=== PATIENT | male | born 1965 | race Caucasian/White ===

== ENCOUNTER 2021-07-29 18:58 | Inpatient (IN) ==
[2021-07-29] MEDS ORDERED: dexAMETHasone**PF** 10 MG/ML VIAL IV ONE (19:45)
--- NOTE | 2021-07-29 19:49 | Emergency Department Note ---
History of Present Illness General Chief complaint: Shortness of Breath/Dyspnea Stated complaint: LOW BLOOD OXYGEN, DR TAYLOR Time Seen by Provider: 07/29/21 19:37 Source: patient History of Present Illness Provider complaint: Short of breath Onset (ago): week(s) Location: chest Pain Consistency: + constant Quality: + other (Short of breath) Relieved By: + other (Oxygen) Associated symptoms: + cough, + fever/chills, + malaise, + shortness of breath and + weakness; no chest pain or no nausea/vomiting This is a 56-year-old male recently diagnosed with COVID-19 presenting with persistent flulike symptoms including shortness of breath for the past 9 days. The patient states that he has fever, cough, loss of taste and smell, severe diarrhea and shortness of breath. The shortness of breath is better with oxygen given here. He was seen here last night and discharged home as his O2 saturations were in the low 90s. He is not vaccinated. He states he got COVID- 19 from his who is also not vaccinated. He denies any chest pain, leg swelling, abdominal pain, urinary symptoms or vomiting. He has had diffuse myalgias. He states whenever he tries to eat or drink something he has diarrhea. Home Medications Medication Instructions Recorded Confirmed Type acetaminophen 500 mg tablet 1,000 mg PO DIRECTED PRN 07/28/21 07/29/21 Histo ry (Tylenol Extra Strength) albuterol sulfate 90 mcg/actuation 1 - 2 inh INHALATION DIRECTED 07/28/21 07/29/21 History aerosol inhaler PRN cyclosporine 0.05 % eye drops in a 1 drp OPB BID 07/28/21 07/29/21 History dropperette (Restasis) diphenhydramine HCl 25 mg capsule 25 - 50 mg PO DIRECTED PRN 07/28/21 07/29/21 History (Benadryl) fluticasone propionate 50 2 spray INTRANASAL DAILY PRN 07/28/21 07/29/21 History mcg/actuation nasal spray,suspension ibuprofen 200 mg tablet (Advil) 200 - 400 mg PO DIRECTED PRN 07/28/21 07/29/21 History guaifenesin 600 mg tablet, 600 mg PO BID PRN 07/29/21 07/29/21 History extended release 12 hr (Mucinex) Allergies Allergy/AdvReac Type Severity Reaction Status Date / Time No Known Allergies Allergy Verified 07/29/21 19:52 Past Med/Surg History Medical History Asthma Social History Smoking Status: Never smoker Feels Safe at Home: Yes Review of Systems See HPI for pertinent positives & negatives. and A total of 10 systems reviewed and were otherwise negative Physical Exam Vital Signs Vital Signs - 24 hr 07/29/21 19:05 07/29/21 19:59 Temperature 36.7 C Temperature Source Temporal Artery Scan Pulse Rate 97 H 91 H Pulse Rate [Right Finger] 91 H Pulse Rhythm [Right Finger] Regular Respiratory Rate 20 17 Respiratory Effort / Characteristics Non-Labored Spontaneous Respiratory Depth Normal Normal Blood Pressure 120/81 Blood Pressure [Right Arm] 109/80 Blood Pressure Mean 94 Blood Pressure Mean [Right Arm] 89 Blood Pressure Position [Right Arm] Lying Pulse Oximetry 88 L 92 Oxygen Delivery Method Room Air Nasal Cannula Oxygen Flow Rate 2 Sepsis Recent Fever Within 48 Hours No Sepsis New/Unexplained Change in Mental Status No Sepsis Action Taken by Nursing No Action Required Constitutional: Vital signs reviewed. Hypoxemic. Eyes: Pupils are equal round reactive to light. Conjunctiva are noninjected. ENT: Pharynx is clear without erythema or exudate. Mucous membranes are moist. Neck supple without meningeal signs. Respiratory: Clear to auscultation bilaterally. Breath sounds are equal bilaterally. Cardiovascular: Regular rate and rhythm. No rubs or gallops. GI: Soft, nondistended and nontender. Bowel sounds are present. Musculoskeletal: No peripheral edema. No lower extremity tenderness. Integumentary: No cyanosis. or jaundice. Neurological: The patient is awake and alert. No focal deficits. Psychiatric: Normal affect. Not anxious appearing. Course Administered Medications Discontinued Medications Dexamethasone Sodium Phosphate (DexamethasonePf 10 Mg/Ml Vial) 6 mg IV NOW ONE Stop: 07/29/21 19:46 Last Admin: 07/29/21 20:12 Dose: 6 mg Documented by: [id number] Medical Decision Making Differential Diagnosis COVID-19, multifocal pneumonia, anemia, asthma exacerbation, metabolic derangement Medical Records Attestation: I reviewed the patient's medical records. I did perform a limited focused review of portions of the patient's old chart on the electronic medical record. The patient was here last night due to symptoms due to COVID-19. He was discharged home. Home Medications Current Medication List: was personally reviewed by me Laboratory Data Attestation: I reviewed the patient's lab results. Result diagrams: 07/29/21 20:05 07/29/21 20:05 Lab Results 07/29/21 07/29/21 07/29/21 Range/Units 20:05 20:05 20:05 WBC 4.83 (4.8-10.8) K/uL RBC 5.04 (4.7-6.1) M/uL Hgb 15.4 (14.0-18.0) g/dL Hct 46.3 (42-52) % MCV 91.9 (80-100) fL MCH 30.6 (25-34) pg MCHC 33.3 (32-36) g/dL RDW Std Deviation 43.3 (36.4-46.3) fL RDW Coeff of Pamela 12.8 (11.5-14.5) % Plt Count 144 (130-400) K/uL MPV 11.2 H (7.4-10.4) fL Immature Gran % (Auto) 0.4 % Neut % (Auto) 80.3 % Lymph % (Auto) 13.5 % [place]uming % (Auto) 5.6 % Eos % (Auto) 0.0 % Baso % (Auto) 0.2 % Neut # (Auto) 3.88 (1.4-6.5) K/uL Lymph # (Auto) 0.65 L (1.2-3.4) K/uL [place] # (Auto) 0.27 (0.11-0.59) K/uL Eos # (Auto) 0.00 (0-0.5) K/uL Baso # (Auto) 0.01 (0-0.2) K/uL Immature Gran # (Auto) 0.02 (0.00-0.02) K/uL APTT 37.6 H (21.0-31.0) Seconds PTT Ratio 1.4 Sodium 134 L (136-145) mmol/L Potassium 4.2 (3.5-5.1) mmol/L Chloride 102 (98-107) mmol/L Carbon Dioxide 26 (21-32) mmol/L Anion Gap 6.0 (3-11) BUN 11 (7-18) mg/dl Creatinine 0.89 (0.6-1.4) mg/dl Est Cr Clr Drug Dosing 97.8 ml/min Est GFR ( Amer) 112.3 ml/min Est GFR (Non-Af Amer) 96.9 ml/min BUN/Creatinine Ratio 12.5 (10-20) Glucose 119 H (70-99) mg/dl Calcium 9.0 (8.5-10.1) mg/dl Magnesium (1.8-2.4) mg/dl Total Bilirubin 0.4 (0.2-1) mg/dl AST 104 H (15-37) U/L ALT 87 H (12-78) Alkaline Phosphatase 145 H (45-117) U/L Troponin I < 0.015 (0-0.045) ng/ml C-Reactive Protein 9.29 H (0-0.29) mg/dl Total Protein 7.5 (6.4-8.2) gm/dl Albumin 3.0 L (3.4-5.0) gm/dl Globulin 4.5 H (2.5-4.0) gm/dl Albumin/Globulin Ratio 0.7 L (0.9-2) 07/29/ Range/Units 20:05 WBC (4.8-10.8) K/uL RBC (4.7-6.1) M/uL Hgb (14.0-18.0) g/dL Hct (42-52) % MCV (80-100) fL MCH (25-34) pg MCHC (32-36) g/dL RDW Std Deviation (36.4-46.3) fL RDW Coeff of Pamela (11.5-14.5) % Plt Count (130-400) K/uL MPV (7.4-10.4) fL Immature Gran % (Auto) % Neut % (Auto) % Lymph % (Auto) % [place] % (Auto) % Eos % (Auto) % Baso % (Auto) % Neut # (Auto) (1.4-6.5) K/uL Lymph # (Auto) (1.2-3.4) K/uL [place] # (Auto) (0.11-0.59) K/uL Eos # (Auto) (0-0.5) K/uL Baso # (Auto) (0-0.2) K/uL Immature Gran # (Auto) (0.00-0.02) K/uL APTT (21.0-31.0) Seconds PTT Ratio Sodium (136-145) mmol/L Potassium (3.5-5.1) mmol/L Chloride (98-107) mmol/L Carbon Dioxide (21-32) mmol/L Anion Gap (3-11) BUN (7-18) mg/dl Creatinine (0.6-1.4) mg/dl Est Cr Clr Drug Dosing ml/min Est GFR ( Amer) ml/min Est GFR (Non-Af Amer) ml/min BUN/Creatinine Ratio (10-20) Glucose (70-99) mg/dl Calcium (8.5-10.1) mg/dl Magnesium 2.0 (1.8-2.4) mg/dl Total Bilirubin (0.2-1) mg/dl AST (15-37) U/L ALT (12-78) Alkaline Phosphatase (45-117) U/L Troponin I (0-0.045) ng/ml C-Reactive Protein (0-0.29) mg/dl Total Protein (6.4-8.2) gm/dl Albumin (3.4-5.0) gm/dl Globulin (2.5-4.0) gm/dl Albumin/Globulin Ratio (0.9-2) Imaging Data Radiologist's Impression: Chest X-Ray 07/29/21 19:44 XR chest 1V portable CLINICAL HISTORY: Dyspnea. Covid positive COMPARISON STUDY: 07/28/2021 TECHNIQUE: 1 view of the chest FINDINGS: Single frontal view of the chest demonstrates the cardiomediastinal silhouette to be within normal limits. Compared to the previous examination, increased interstitial and alveolar opacities are present bilaterally. The findings are most characteristic of a viral type pneumonitis. Covid 19 pneumonia should be excluded. There is no evidence for pleural effusion. There is no evidence for vascular congestion. There is no acute osseous pathology. IMPRESSION: Compared to the previous examination, increased interstitial and alveolar opacities are now seen bilaterally, right greater than left characteristic of a viral type pneumonitis and probable Covid 19 pneumonia. ACT 112: Negative or not required by law. Electronically signed by: Kristian Tijerina M.D. 07/29/2021 8:05 PM MDM Narrative I did evaluate the patient as noted above. He is an unvaccinated Covid 19 patient presenting with hypoxemia. His O2 saturation is 88% on room air. He was placed on 2 L nasal cannula and is O2 saturation went up to 94%. IV access was established. I did place an order for continuous cardiac monitoring. The monitor showed normal sinus rhythm at a rate of 90 bpm. I did order and personally review the patient's 12-lead EKG as described above. I did order and personally reviewed the images of the patient's chest x-ray as described above. He has a multifocal pneumonia consistent with COVID-19. I did order and review the patient's blood work as noted in the electronic medical record. CBC demonstrates no evidence of leukocytosis or anemia. Electrolytes demonstrate a sodium of 134 but are otherwise unremarkable. LFTs are elevated with an AST of 104 and ALT of 87. Troponin is negative. C-reactive protein is 9.2. I did discuss case with the hospitalist and caser up. Impression & Plan Hypoxemia, Pneumonia due to 2019 novel coronavirus, Multifocal pneumonia, Abnormal LFTs Discharge Plan Visit Data Chief Complaint: Shortness of Breath/Dyspnea Stated Complaint: LOW BLOOD OXYGEN, RFR'D ED Provider: Andres Hassan Discharge Problem: Hypoxemia, Pneumonia due to 2019 novel coronavirus, Multifocal pneumonia, Abnormal LFTs Patient Disposition: Being Evaluated by Hospitalist Forms Stand Alone Forms: My [facility] Prescriptions Prescriptions: No Action acetaminophen [Tylenol Extra Strength] 500 mg Tablet 1,000 mg PO DIRECTED PRN (Reason: FEVER/PAIN) RF: 0 diphenhydramine HCl [Benadryl] 25 mg Capsule 25 - 50 mg PO DIRECTED PRN (Reason: Congestion) RF: 0 ibuprofen [Advil] 200 mg Tablet 200 - 400 mg PO DIRECTED PRN (Reason: FEVER/PAIN) RF: 0 albuterol sulfate 90 mcg/actuation Hfa Aerosol Inhaler 1 - 2 inh INHALATION DIRECTED PRN (Reason: Shortness Of Breath) RF: 0 fluticasone propionate 50 mcg/actuation spray,suspension 2 spray INTRANASAL DAILY PRN (Reason: Congestion) RF: 0 Restasis 0.05 % dropperette 1 drp OPB BID RF: 0 guaifenesin [Mucinex] 600 mg Tablet Extended Release 12hr 600 mg PO BID PRN (Reason: Congestion) RF: 0 Referrals Referrals: Scout Figueroa MD [Primary Care Provider] -
--- NOTE | 2021-07-29 20:06 | XRay Report ---
XR chest 1V portable CLINICAL HISTORY: Dyspnea. Covid positive COMPARISON STUDY: 07/28/2021 TECHNIQUE: 1 view of the chest FINDINGS: Single frontal view of the chest demonstrates the cardiomediastinal silhouette to be within normal li mits. Compared to the previous examination, increased interstitial and alveolar opacities are present bilaterally. The findings are most characteristic of a viral type pneumonitis. Covid 19 pneumonia sh ould be excluded. There is no evidence for pleural effusion. There is no evidence for vascular conges tion. There is no acute osseous pathology. IMPRESSION: Compared to the previous examination, increased interstitial and alveolar opacities are n ow seen bilaterally, right greater than left characteristic of a viral type pneumonitis and probable Covid 19 pneumonia. ACT 112: Negative or not required by law. Electronically signed by: Kristian Tijerina M.D. 07/29/2021 8:05 PM
[2021-07-29 20:40] LABS: Hematocrit (blood only) 46.3 % (42-52); Hemoglobin 15.4 g/dL (14.0-18.0); Mean Corpuscular Hemoglobin 30.6 pg (25-34); Mean Corpuscular Hgb Conc 33.3 g/dL (32-36); Mean Corpuscular Volume 91.9 fL (80-100); Mean Platelet Volume 11.2 fL (7.4-10.4); Platelet Count 144 K/uL (130-400); RDW Coefficient of Variation 12.8 % (11.5-14.5); RDW Standard Deviation 43.3 fL (36.4-46.3); Red Blood Count 5.04 M/uL (4.7-6.1); White Blood Count 4.83 K/uL (4.8-10.8)
[2021-07-29 20:57] LABS: Alanine Aminotransferase 87 (12-78); Aspartate Aminotransferase 104 U/L (15-37); BUN Creatinine Ratio 12.5 (10-20); Blood Urea Nitrogen 11 mg/dl (7-18); C Reactive Protein 9.29 mg/dl (0-0.29); Carbon Dioxide 26 mmol/L (21-32); Chloride 102 mmol/L (98-107); Creatinine Clr Calc Pharmacy 97.8 ml/min; Est GFR (African American) 112.3 ml/min; Est GFR (Non-African American) 96.9 ml/min; Glucose 119 mg/dl (70-99); Potassium 4.2 mmol/L (3.5-5.1); Sodium 134 mmol/L (136-145)
[2021-07-29 21:02] LABS: Albumin Globulin Ratio 0.7 (0.9-2); Alkaline Phosphatase 145 U/L (45-117); Bilirubin,Total 0.4 mg/dl (0.2-1); Globulin 4.5 gm/dl (2.5-4.0); Total Protein 7.5 gm/dl (6.4-8.2); Troponin I < 0.015 ng/ml (0-0.045)
[2021-07-29 21:06] LABS: Basophils # (auto) 0.01 K/uL (0-0.2); Basophils % (auto) 0.2 %; Immature Granulocytes # (auto) 0.02 K/uL (0.00-0.02); Immature Granulocytes % (auto) 0.4 %; Lymphocytes # (auto) 0.65 K/uL (1.2-3.4); Lymphocytes % (auto) 13.5 %; Monocytes # (auto) 0.27 K/uL (0.11-0.59); Monocytes % (auto) 5.6 %; Neutrophils # (auto) 3.88 K/uL (1.4-6.5); Neutrophils % (auto) 80.3 %; Partial Thromboplastin Ratio 1.4; Partial Thromboplastin Time 37.6 Seconds (21.0-31.0)
--- NOTE | 2021-07-29 21:14 | History & Physical Report ---
Date of Service July 29, 2021 Assessment & Plan (1) Acute hypoxemic respiratory failure: Plan: Secondary to severe COVID-19 pneumonia Superimposed bacterial infection No overt sepsis for now bronchial asthma, well controlled prior to illness as per patient, patient without wheezing symptoms at present. Asymptomatic transaminitis, possible fatty liver Hyperglycemia rule out DM mood disorder, stable Medical telemetry Supplemental O2 Azithromycin course for superimposed local infection Decadron and Remdesivir for severe COVID-19 pneumonia. (Patient was counseled regarding potential adverse effects from Remdesivir therapy.) Give initial dose of Remdesivir for now. Recheck LFTs before subsequent doses administered. Pulmonary consult if without improvement. Check hemoglobin A1c DVT prophylaxis per Lovenox subcu Full code Text document was generated using [employer] voice recognition software. It may contain grammatical or spelling errors. Kindly contact undersigned for clarification of any documentation item in question. History of Present Illness Chief Complaint: Shortness of breath, Covid Primary Care Provider: Scout Figueroa MD History obtained from patient and records. Medical history significant for bronchial asthma, hyperlipidemia, mood disorder. Patient with flulike symptoms, achiness, diarrhea symptoms without abdominal pain, poor appetite last week. Sick COVID-19 contacts at home. Patient has not received COVID-19 examination. First outpatient COVID-19 test last week was negative. 2 days later, patient insisted on being retested because of persistent symptoms. Second COVID-19 test was positive. Patient later developed cough symptoms productive of yellow sputum without chest pain. Some shortness of breath. Patient seen at the ER yesterday. Chest x-ray showed bilateral airspace opacities more pronounced on the right suggestive of pneumonia. Patient discharged home and advised self-care. Patient returned to ER with worsening symptoms. O2 sats upon arrival at the ER tonight 80s on room air. Decadron administered at the ER. Medical History as above Surgical History : Dental surgery Family History : Kidney cancer, DM, heart disease, stroke, mastocytosis Personal/Social history : Non-smoker, occasional EtOH intake, [employer] Allergies Allergy/AdvReac Type Severity Reaction Status Date / Time No Known Allergies Allergy Verified 07/29/21 19:52 Home Medications Medication Instructions Recorded Confirmed Type acetaminophen 500 mg tablet 1,000 mg PO DIRECTED PRN 07/28/21 07/29/21 History (Tylenol Extra Strength) albuterol sulfate 90 mcg/actuation 1 - 2 inh INHALATION DIRECTED 07/28/21 07/29/21 History aerosol inhaler PRN cyclosporine 0.05 % eye drops in a 1 drp OPB BID 07/28/21 07/29/21 History dropperette (Restasis) diphenhydramine HCl 25 mg capsule 25 - 50 mg PO DIRECTED PRN 07/28/21 07/29/21 History (Benadryl) fluticasone propionate 50 2 spray INTRANASAL DAILY PRN 07/28/21 07/29/21 History mcg/actuation nasal spray,suspension ibuprofen 200 mg tablet (Advil) 200 - 400 mg PO DIRECTED PRN 07/28/21 07/29/21 History guaifenesin 600 mg tablet, 600 mg PO BID PRN 07/29/21 07/29/21 History extended release 12 hr (Mucinex) Past Med/Surg History Medical History Asthma Social History Smoking Status: Never smoker Feels Safe at Home: Yes Review of Systems Review of Systems: As per HPI, all 10 systems reviewed, all other ROS negative Physical Exam Physical Exam: GENERAL: Slightly uncomfortable, slightly anxious, obese, no respiratory distress SKIN: Normal color, warm HEENT: Bespectacled, partial alopecia, pink palpebral conjunctivae, no ptosis, dry buccal mucosa NECK : Supple, short neck, no tenderness CHEST : Decreased breath sounds, no tenderness HEART : RRR, no obvious murmurs ABDOMEN: Some distention, nontender EXTREMITIES : No LE swelling/tenderness, no other conspicuous deformities noted NEUROLOGIC : Coherent, no facial asymmetry, no other gross focality Results & Data Results & Data ([facility]) Vital Signs (Past 12 Hours) Vital Signs Temp Pulse Pulse Resp BP BP Pulse Ox 07/29/21 19:59 91 H 91 H 17 109/80 92 07/29/21 19:05 36.7 C 97 H 20 120/81 88 L Laboratory Results Laboratory Results WBC 4.83 K/uL (4.8-10.8) 07/29/21 20:05 RBC 5.04 M/uL (4.7-6.1) 07/29/21 20:05 Hgb 15.4 g/dL (14.0-18.0) 07/29/21 20:05 Hct 46.3 % (42-52) 07/29/21 20:05 MCV 91.9 fL (80-100) 07/29/21 20:05 MCH 30.6 pg (25-34) 07/29/21 20:05 MCHC 33.3 g/dL (32-36) 07/29/21 20:05 RDW Std Deviation 43.3 fL (36.4-46.3) 07/29/21 20:05 RDW Coeff of Pamela 12.8 % (11.5-14.5) 07/29/21 20:05 Plt Count 144 K/uL (130-400) 07/29/21 20:05 MPV 11.2 fL (7.4-10.4) H 07/29/21 20:05 Immature Gran % (Auto) 0.4 % 07/29/21 20:05 Neut % (Auto) 80.3 % 07/29/21 20:05 Lymph % (Auto) 13.5 % 07/29/21 20:05 [place] % (Auto) 5.6 % 07/29/21 20:05 Eos % (Auto) 0.0 % 07/29/21 20:05 Baso % (Auto) 0.2 % 07/29/21 20:05 Neut # (Auto) 3.88 K/uL (1.4-6.5) 07/29/21 20:05 Lymph # (Auto) 0.65 K/uL (1.2-3.4) L 07/29/21 20:05 [place] # (Auto) 0.27 K/uL (0.11-0.59) 07/29/21 20:05 Eos # (Auto) 0.00 K/uL (0-0.5) 07/29/21 20:05 Baso # (Auto) 0.01 K/uL (0-0.2) 07/29/21 20:05 Immature Gran # (Auto) 0.02 K/uL (0.00-0.02) 07/29/21 20:05 APTT 37.6 Seconds (21.0-31.0) H 07/29/21 20:05 PTT Ratio 1.4 07/29/21 20:05 Sodium 134 mmol/L (136-145) L 07/29/21 20:05 Potassium 4.2 mmol/L (3.5-5.1) 07/29/21 20:05 Chloride 102 mmol/L (98-107) 07/29/21 20:05 Carbon Dioxide 26 mmol/L (21-32) 07/29/21 20:05 Anion Gap 6.0 (3-11) 07/29/21 20:05 BUN 11 mg/dl (7-18) 07/29/21 20:05 Creatinine 0.89 mg/dl (0.6-1.4) 07/29/21 20:05 Est Cr Clr Drug Dosing 97.8 ml/min 07/29/21 20:05 Est GFR ( Amer) 112.3 ml/min 07/29/21 20:05 Est GFR (Non-Af Amer) 96.9 ml/min 07/29/21 20:05 BUN/Creatinine Ratio 12.5 (10-20) 07/29/21 20:05 Glucose 119 mg/dl (70-99) H 07/29/21 20:05 Calcium 9.0 mg/dl (8.5-10.1) 07/29/21 20:05 Magnesium 2.0 mg/dl (1.8-2.4) 07/29/21 20:05 Total Bilirubin 0.4 mg/dl (0.2-1) 07/29/21 20:05 AST 104 U/L (15-37) H 07/29/21 20:05 ALT 87 (12-78) H 07/29/21 20:05 Alkaline Phosphatase 145 U/L (45-117) H 07/29/21 20:05 Troponin I < 0.015 ng/ml (0-0.045) 07/29/21 20:05 C-Reactive Protein 9.29 mg/dl (0-0.29) H 07/29/21 20:05 Total Protein 7.5 gm/dl (6.4-8.2) 07/29/21 20:05 Albumin 3.0 gm/dl (3.4-5.0) L 07/29/21 20:05 Globulin 4.5 gm/dl (2.5-4.0) H 07/29/21 20:05 Albumin/Globulin Ratio 0.7 (0.9-2) L 07/29/21 20:05 Impressions Chest X-Ray 07/29/21 19:44 XR chest 1V portable CLINICAL HISTORY: Dyspnea. Covid positive COMPARISON STUDY: 07/28/2021 TECHNIQUE: 1 view of the chest FINDINGS: Single frontal view of the chest demonstrates the cardiomediastinal silhouette to be within normal limits. Compared to the previous examination, increased interstitial and alveolar opacities are present bilaterally. The findings are most characteristic of a viral type pneumonitis. Covid 19 pneumonia should be excluded. There is no evidence for pleural effusion. There is no evidence for vascular congestion. There is no acute osseous pathology. IMPRESSION: Compared to the previous examination, increased interstitial and alveolar opacities are now seen bilaterally, right greater than left characteristic of a viral type pneumonitis and probable Covid 19 pneumonia. ACT 112: Negative or not required by law. Electronically signed by: Kristian Tijerina M.D. 07/29/2021 8:05 PM Diagnostic Findings EKG as per my interpretation: Rate 90, NSR, normal axis, T wave abnormalities inferior leads
[2021-07-29] MEDS ORDERED: ACETAMINOPHEN 325 MG TAB PO STA (21:15)
[2021-07-29] MEDS ORDERED: SODIUM CHLORIDE 0.9% 1000ML 1,000 ML IV ONE (21:17)
[2021-07-29] MEDS ORDERED: AZITHROMYCIN 500 MG in DEXTROSE 5% 250 ML IV STA (21:27)
[2021-07-29] MEDS ORDERED: REMDESIVIR 200 MG in SODIUM CHLORIDE 0.9% 210 ML IV STA (21:28)
[2021-07-29] MEDS ORDERED: PROMETHAZINE HCL 12.5 MG in SODIUM CHLORIDE 0.9% 50 ML IV PRN (22:45)
[2021-07-29] MEDS ORDERED: traMADol HCL 50 MG TABLET PO PRN (22:45)
[2021-07-29 23:42] LABS: Appearance Urine Clear (Clear); Bacteria Urine Automated Negative (Negative); Bilirubin Urine Negative (Negative); Blood Urine Trace (Negative); Color Urine Yellow; Glucose Urine UA Negative (Negative); Ketones Urine Trace (Negative); Leukocyte Esterase Urine Negative (Negative); Nitrite Urine Negative (Negative); Protein Urine 2+ (Negative); RBC Urine Automated 0-4 /hpf (0-4); Specific Gravity Urine 1.021 (1.000-1.030); Urobilinogen Urine Negative (Negative); pH Urine 5.5 (4.5-7.5)
[2021-07-30] MEDS ORDERED: SODIUM CHLORIDE 0.9% 10ML FLUSH IV SCH ×2 (00:15→21:00)
[2021-07-30 07:09] LABS: Basophils # (auto) 0.01 K/uL (0-0.2); Basophils % (auto) 0.2 %; Eosinophils # (auto) 0.01 K/uL (0-0.5); Eosinophils % (auto) 0.2 %; Hematocrit (blood only) 44.4 % (42-52); Hemoglobin 14.8 g/dL (14.0-18.0); Immature Granulocytes # (auto) 0.02 K/uL (0.00-0.02); Immature Granulocytes % (auto) 0.4 %; Lymphocytes # (auto) 0.63 K/uL (1.2-3.4); Lymphocytes % (auto) 13.1 %; Mean Corpuscular Hemoglobin 30.7 pg (25-34); Mean Corpuscular Hgb Conc 33.3 g/dL (32-36); Mean Corpuscular Volume 92.1 fL (80-100); Mean Platelet Volume 11.1 fL (7.4-10.4); Monocytes # (auto) 0.24 K/uL (0.11-0.59); Neutrophils # (auto) 3.91 K/uL (1.4-6.5); Neutrophils % (auto) 81.1 %; Platelet Count 165 K/uL (130-400); RDW Coefficient of Variation 12.8 % (11.5-14.5); Red Blood Count 4.82 M/uL (4.7-6.1); White Blood Count 4.82 K/uL (4.8-10.8)
[2021-07-30 07:31] LABS: Estimated Average Glucose 131 mg/dl; Hemoglobin A1C 6.2 % (4.5-5.6)
[2021-07-30 07:43] LABS: Albumin Level 2.6 gm/dl (3.4-5.0); BUN Creatinine Ratio 13.1 (10-20); Calcium 8.7 mg/dl (8.5-10.1); Creatinine Clr Calc Pharmacy 112.7 ml/min; Est GFR (African American) 119.2 ml/min; Est GFR (Non-African American) 102.9 ml/min; Potassium 4.3 mmol/L (3.5-5.1)
[2021-07-30 07:46] LABS: Albumin Globulin Ratio 0.6 (0.9-2); Bilirubin,Total 0.3 mg/dl (0.2-1); C Reactive Protein 9.84 mg/dl (0-0.29); Globulin 4.3 gm/dl (2.5-4.0); Total Protein 6.9 gm/dl (6.4-8.2)
[2021-07-30] MEDS: AZITHROMYCIN 250 MG TAB PO SCH (08:10)
[2021-07-30] MEDS: ENOXAPARIN INJ 40 MG/0.4 ML SYR SQ SCH (08:10)
[2021-07-30] MEDS: dexAMETHasone 6 MG in SYRINGE 0 ML IV SCH (10:44)
[2021-07-30] MEDS: ACETAMINOPHEN 325 MG TAB PO PRN (11:40)
[2021-07-30] MEDS: cefTRIAXone SODIUM 2,000 MG in DEXTROSE 5% 50 ML IV SCH (12:38)
--- NOTE | 2021-07-30 14:43 | Ultrasound Report ---
US gallbladder CLINICAL HISTORY: Transaminitis. COMPARISON STUDY: CT of the abdomen and pelvis November 21, 2009. FINDINGS: No hepatic lesions are identified. There is no biliary ductal dilatation. The common bile d uct measures 4 mm in caliber. Gallbladder is normal. There are no gallstones. Pancreatic body is norm al. Head and tail are slightly obscured. There is no right hydronephrosis. IMPRESSION: No abnormality within the right upper quadrant by sonography. ACT 112: Negative or not required by law. Electronically signed by: Ernesto Swann M.D. 07/30/2021 2:41 PM
--- NOTE | 2021-07-30 17:56 | Hospitalist Progress Note ---
Date of Service July 30, 2021 Assessment & Plan (1) Acute hypoxemic respiratory failure: Plan: Acute respiratory failure with hypoxia COVID-19 pneumonia -CXR:Compared to the previous examination, increased interstitial and alveolar opacities are now seen bilaterally, right greater than left characteristic of a viral type pneumonitis and probable Covid 19 pneumonia. CRP 9.8 Continue supplemental oxygen Also on azithromycin, Rocephin for possible secondary bacterial infection Check procalcitonin in the morning Blood cultures obtained Continue dexamethasone Patient prefers to receive remdesivir today and recheck LFTs tomorrow to decide on further remdesivir course Pulmonary hygiene Consider pulmonology evaluation if needed Transaminitis Likely secondary to Covid Gallbladder ultrasound showed no acute abnormality Monitor LFTs Bronchial asthma Continue steroids as above Nebs as needed Prediabetes HbA1c 6.2 Mood disorder stable DVT Px: Lovenox SQ Code Status Full code Admission and Anticipated Discharge Date Admission Date: July 29, 2021 Subjective Patient is seen and examined at bedside States having cough with minimal phlegm Reports poor sleep overnight Dyspnea with exertion Desaturates with movement Reports having diarrhea last night Denies chest pain, dizziness, nausea, vomiting, abdominal pain Offers no other complaints Review of Systems Review of Systems: All systems reviewed & are unremarkable except as noted in Subjective Physical Exam Physical Exam: Physical Exam: Vitals signs as noted above General Appearance:Moderately built and nourished, no apparent distress Head: normocephalic, Atraumatic Eyes: normal inspection, EOMI Neck: supple, Trachea midline Respiratory/Chest: Decreased breath sounds, CTA Cardiovascular: S1, S2, No murmur Abdomen/GI:Soft, Non tender, Bowel sounds present Extremities/Musculoskeletal:normal inspection, no edema Neurologic/Psych:AAOX3, grossly no focal neurological deficits Skin: normal color, warm Results & Data Results & Data ([facility]) Vital Signs (Past 12 Hours) Vital Signs Temp Pulse Pulse Resp BP Pulse Ox 07/30/21 15:24 37.3 C 97 H 20 105/71 89 L 07/30/21 14:16 90 07/30/21 13:17 37.4 C 07/30/21 12:20 38.0 C H 07/30/21 11:31 39.3 C H 99 H 20 118/71 90 07/30/21 08:00 92 07/30/21 07:41 107 H 07/30/21 07:37 37.2 C 104 H 20 114/72 93 07/30/21 06:46 89 L Laboratory Results Short CBC 07/29/21 07/30/21 Range/Units 20:05 05:29 WBC 4.83 4.82 (4.8-10.8) K/uL Hgb 15.4 14.8 (14.0-18.0) g/dL Hct 46.3 44.4 (42-52) % Plt Count 144 165 (130-400) K/uL BMP 07/29/21 07/30/21 20:05 05:29 Sodium 134 L 134 L Potassium 4.2 4.3 Chloride 102 103 Carbon Dioxide 26 26 BUN 11 10 Creatinine 0.89 0.77 Glucose 119 H 143 H Calcium 9.0 8.7 Cardiac Enzymes 07/29/21 Range/Units 20:05 Troponin I < 0.015 (0-0.045) ng/ml Liver Function 07/29/21 07/30/21 Range/Units 20:05 05:29 Total Bilirubin 0.4 0.3 (0.2-1) mg/dl AST 104 H 113 H (15-37) U/L ALT 87 H 90 H (12-78) Alkaline Phosphatase 145 H 140 H (45-117) U/L Albumin 3.0 L 2.6 L (3.4-5.0) gm/dl Urine 07/29/21 Range/Units 23:25 Urine Color Yellow Urine Appearance Clear (Clear) Urine pH 5.5 (4.5-7.5) Ur Specific [place] 1.021 (1.000-1.030) Urine Protein 2+ H (Negative) Urine Glucose (UA) Negative (Negative)
[2021-07-30] MEDS ORDERED: REMDESIVIR 100 MG in SODIUM CHLORIDE 0.9% 230 ML IV SCH (20:00)
[2021-07-30] MEDS ORDERED: XOPENEX/ATROVENT 1.25mg/0.5MG NEB COMBO NEB STA (23:55)
[2021-07-30] MEDS ORDERED: MAGNESIUM SULFATE / D5W 1 GM/100 ML BAG IV ONE (23:56)
[2021-07-30] MEDS ORDERED: methylPREDNISolone 40 MG in SYRINGE 0 ML IV STA (23:58)
[2021-07-30] MEDS ORDERED: LEVALBUTEROL 1.25MG/0.5ML NEB INH STA (23:59)
[2021-07-30] MEDS ORDERED: IPRATROPIUM BROMIDE NEB SOLN 0.02% 2.5 ML VIAL INH STA (23:59)
[2021-07-31] MEDS ORDERED: FUROSEMIDE INJ 20 MG/2 ML VIAL IV ONE (00:31)
[2021-07-31] MEDS: FLUTICASONE PROPIONATE NA SPR 16 GM BTL PRN (00:54)
[2021-07-31 01:30] LABS: Base Excess ABG 1.5 mEq/L (-9-1.8); HCO3 ABG 25 mmol/L (19-24); Oxygen Saturation ABG 91.4 % (90-95); PCO2 ABG 34 mmHg (35-46); PO2 ABG 58 mmHg (80-95); pH ABG 7.48 (7.35-7.45)
[2021-07-31 01:31] LABS: Allen Test POS (Pos)
--- NOTE | 2021-07-31 06:58 | XRay Report ---
XR chest 1V portable CLINICAL HISTORY: low o2. Positive Covid. Follow-up interstitial and alveolar opacities COMPARISON STUDY: 07/29/2021 TECHNIQUE: 1 view of the chest FINDINGS: Single frontal view of the chest demonstrates the cardiomediastinal silhouette to be within normal li mits. Compared to the previous examination, stable interstitial and alveolar opacities are again seen bilaterally. There is no evidence for pleural effusion. There is no evidence for vascular congestion . There is no acute osseous pathology. IMPRESSION: Stable interstitial and alveolar opacities are again seen bilaterally most characteristic of a viral type pneumonitis and Covid pneumonia. ACT 112: Negative or not required by law. Electronically signed by: Kristian Tijerina M.D. 07/31/2021 6:56 AM
[2021-07-31 07:27] LABS: Hematocrit (blood only) 46.6 % (42-52); Hemoglobin 15.6 g/dL (14.0-18.0); Mean Corpuscular Hgb Conc 33.5 g/dL (32-36); Mean Corpuscular Volume 92.5 fL (80-100); Mean Platelet Volume 10.5 fL (7.4-10.4); Platelet Count 231 K/uL (130-400); RDW Coefficient of Variation 12.9 % (11.5-14.5); RDW Standard Deviation 43.9 fL (36.4-46.3); Red Blood Count 5.04 M/uL (4.7-6.1); White Blood Count 6.82 K/uL (4.8-10.8)
[2021-07-31 07:56] LABS: Albumin Level 2.6 gm/dl (3.4-5.0); C Reactive Protein 5.84 mg/dl (0-0.29); Calcium 8.4 mg/dl (8.5-10.1); Est GFR (African American) 92.8 ml/min; Est GFR (Non-African American) 80.1 ml/min; Potassium 4.6 mmol/L (3.5-5.1)
[2021-07-31] MEDS: dexAMETHasone 6 MG in SYRINGE 0 ML IV SCH (07:56)
[2021-07-31] MEDS: ENOXAPARIN INJ 40 MG/0.4 ML SYR SQ SCH (07:56)
[2021-07-31] MEDS: AZITHROMYCIN 250 MG TAB PO SCH (07:56)
[2021-07-31 07:59] LABS: Albumin Globulin Ratio 0.6 (0.9-2); Globulin 4.5 gm/dl (2.5-4.0); Total Protein 7.1 gm/dl (6.4-8.2)
[2021-07-31 08:02] LABS: Bilirubin,Total 0.3 mg/dl (0.2-1)
[2021-07-31] MEDS: SODIUM CHLORIDE 0.9% 10ML FLUSH IV SCH (09:52)
[2021-07-31] MEDS: cefTRIAXone SODIUM 2,000 MG in DEXTROSE 5% 50 ML IV SCH (13:00)
--- NOTE | 2021-07-31 16:51 | Hospitalist Progress Note ---
Date of Service July 31, 2021 Assessment & Plan (1) Acute hypoxemic respiratory failure: Plan: Acute respiratory failure with hypoxia COVID-19 pneumonia -CXR:Compared to the previous examination, increased interstitial and alveolar opacities are now seen bilaterally, right greater than left characteristic of a viral type pneumonitis and probable Covid 19 pneumonia. CRP 9.8 Also on azithromycin, Rocephin for possible secondary bacterial infection Check procalcitonin in the morning-0.39 Blood cultures obtained-negative blood cultures Continue dexamethasone and remdesivir LFTs remain unremarkable Pulmonary hygiene, use of spirometer and flutter valve and also maintaining proning as much as possible Consider pulmonology evaluation if needed Clinically stable and feeling a little better Transaminitis Likely secondary to Covid Gallbladder ultrasound showed no acute abnormality Monitor LFTs-have been improving Bronchial asthma Continue steroids as above Nebs as needed Complicating Covid infection Prediabetes HbA1c 6.2 Mood disorder stable DVT Px: Lovenox SQ Code Status Full code Admission and Anticipated Discharge Date Admission Date: July 29, 2021 Subjective 07/31/2021 The patient was seen and examined in Covid unit He has been feeling a little better and trying to be in prone position to help himself He has cough and shortness of breath at rest and worse with minimal movement Has been requiring 30 L of oxygen to maintain saturation Review of Systems Review of Systems: All systems reviewed and are unremarkable except as noted below Respiratory: Has moderate shortness of breath at rest Physical Exam Physical Exam: Lying in bed with moderate shortness of breath at rest Constitutional: well developed, well nourished and + ill appearing Eyes: PERRL, conjunctivae normal, anicteric sclerae ENMT: external ear and nose normal, oropharynx normal Neck: trachea midline, no thyromegaly Respiratory: no respiratory distress Auscultation: + diminished lung sounds and + crackles (Bibasilar crackles) Cardiovascular: Rate/Rhythm: regular rate, regular rhythm and + tachycardic Heart Sounds: normal S1 and normal S2; no murmur Extremities: no edema Gastrointestinal (Abdomen): Inspection/Auscultation: normal bowel sounds; abdomen not distended Percussion/Palpation: abdomen soft; abdomen nontender Musculoskeletal: No acute arthritis in any joint Neurologic: Alert, awake and oriented x3. Generally weak but no focal sensory no motor deficit appreciated Psychiatric: A+Ox3, euthymic affect Lymphatic: no cervical or axillary lymphadenopathy Results & Data Results & Data ([facility]) Vital Signs (Past 12 Hours) Vital Signs Temp Pulse Resp BP BP Pulse Ox 07/31/21 14:36 118 H 22 88 L 07/31/21 11:18 37.3 C 106 H 22 105/66 92 07/31/21 11:07 106 H 18 91 07/31/21 07:40 99 H 18 92 07/31/21 07:00 37.1 C 97 H 22 120/76 90 Laboratory Results Short CBC 07/31/21 Range/Units 07:01 WBC 6.82 (4.8-10.8) K/uL Hgb 15.6 (14.0-18.0) g/dL Hct 46.6 (42-52) % Plt Count 231 (130-400) K/uL BMP 07/31/21 07:01 Sodium 136 Potassium 4.6 Chloride 101 Carbon Dioxide 29 BUN 16 D Creatinine 1.05 Glucose 184 H Calcium 8.4 L Liver Function 07/31/21 Range/Units 07:01 Total Bilirubin 0.3 (0.2-1) mg/dl AST 98 H (15-37) U/L ALT 88 H (12-78) Alkaline Phosphatase 122 H (45-117) U/L Albumin 2.6 L (3.4-5.0) gm/dl Medications Administered Current Inpatient Medications Acetaminophen (Acetaminophen 325 Mg Tab) 325 mg PO Q6H PRN PRN Reason: Mild Pain Stop: 08/28/21 22:44 Last Admin: 07/30/21 11:40 Dose: 325 mg Documented by: Azithromycin (Azithromycin 250 Mg Tab) 250 mg PO [facility] Stop: 08/03/21 08:59 Last Admin: 07/31/21 07:56 Dose: 250 mg Documented by: Enoxaparin Sodium (Enoxaparin Inj 40 Mg/0.4 Ml Syr) [facility] [place]: 08/29/21 08:59 Last Admin: 07/31/21 07:56 Dose: 40 mg Documented by: Fluticasone Propionate (Fluticasone Propionate Na Spr 16 Gm Btl) 2 sprays NA DAILY PRN PRN Reason: Congestion Stop: 08/28/21 22:44 Last Admin: 07/31/21 00:54 Dose: 2 sprays Documented by: Promethazine HCl 12.5 mg/ (Sodium Chloride) 50.5 mls @ 202 mls/hr IV Q6H PRN PRN Reason: Nausea And Vomiting Stop: 08/28/21 22:44 Dexamethasone 6 mg/ Syringe 1.5 mls @ 1 mls/min IV DAILY [facility] Stop: 08/08/21 09:02 Last Admin: 07/31/21 07:56 Dose: 1 mls/min Documented by: Ceftriaxone Sodium 2,000 mg/ (Dextrose) 70 mls @ 100 mls/hr IV Q24H [facility]; Protocol Stop: 08/06/21 12:29 Last Infusion: 07/31/21 14:34 Dose: Infused Documented by: Remdesivir 100 mg/ Sodium (Chloride) 250 mls @ 250 mls/hr IV Q24H [facility]; Protocol Stop: 08/03/21 20:59 Miscellaneous (Cyclosporine [Restasis]: Order Awaiting Action) 1 ea N/A QS [facility] Stop: 08/29/21 07:59 Last Admin: 07/31/21 14:34 Dose: Not Given Documented by: Sodium Chloride (Sodium Chloride 0.9% 10ml Flush) 30 ml IV Q24H [facility] Stop: 08/04/21 09:01 Last Admin: 07/31/21 09:52 Dose: Not Given Documented by: Tramadol HCl (Tramadol Hcl 50 Mg Tablet) 25 - 50 mg PO Q4H PRN PRN Reason: Pain Stop: 08/28/21 22:44 Last Admin: 07/30/21 08:10 Dose: 50 mg Documented by:
[2021-07-31] MEDS: REMDESIVIR 100 MG in SODIUM CHLORIDE 0.9% 230 ML IV SCH (19:51)
--- NOTE | 2021-08-01 06:00 | Electrocardiogram Report ---
Test Reason : Blood Pressure : / mmHG Vent. Rate : 088 BPM Atrial Rate : 088 BPM P-R Int : 146 ms QRS Dur : 072 ms QT Int : 366 ms P-R-T Axes : 014 011 -03 degrees QTc Int : 442 ms Poor data quality, interpretation may be adversely affected Normal sinus rhythm Low voltage QRS Borderline ECG When compared with ECG of 28-JUL-2021 19:52, No significant change was found Confirmed by Shree Shrestha ([id number]) on 08/01/2021 5:59:32 AM Referred By: Scout Figueroa Confirmed By:Shree Shrestha
[2021-08-01 07:48] LABS: Creatinine Clr Calc Pharmacy 90.3 ml/min; Est GFR (African American) 106.1 ml/min; Est GFR (Non-African American) 91.6 ml/min
[2021-08-01] MEDS: SODIUM CHLORIDE 0.9% 10ML FLUSH IV SCH (09:07)
[2021-08-01] MEDS: ENOXAPARIN INJ 40 MG/0.4 ML SYR SQ SCH (09:08)
[2021-08-01] MEDS: AZITHROMYCIN 250 MG TAB PO SCH (09:10)
[2021-08-01] MEDS: dexAMETHasone 6 MG in SYRINGE 0 ML IV SCH (09:10)
[2021-08-01] MEDS: cefTRIAXone SODIUM 2,000 MG in DEXTROSE 5% 50 ML IV SCH (13:59)
[2021-08-01] MEDS ORDERED: METOPROLOL TARTRATE 1 MG/ML VIAL IV PRN (14:49)
[2021-08-01] MEDS ORDERED: METOPROLOL TARTRATE 1 MG/ML VIAL IV ONE (14:50)
[2021-08-01 15:34] LABS: Hematocrit (blood only) 46.3 % (42-52); Hemoglobin 15.7 g/dL (14.0-18.0); Mean Corpuscular Hemoglobin 31.1 pg (25-34); Mean Corpuscular Hgb Conc 33.9 g/dL (32-36); Mean Corpuscular Volume 91.7 fL (80-100); Mean Platelet Volume 10.6 fL (7.4-10.4); Platelet Count 305 K/uL (130-400); RDW Coefficient of Variation 12.7 % (11.5-14.5); RDW Standard Deviation 42.7 fL (36.4-46.3); Red Blood Count 5.05 M/uL (4.7-6.1); White Blood Count 9.83 K/uL (4.8-10.8)
[2021-08-01 15:44] LABS: BUN Creatinine Ratio 22.9 (10-20); Calcium 8.4 mg/dl (8.5-10.1); Creatinine Clr Calc Pharmacy 81.6 ml/min; Est GFR (African American) 93.9 ml/min; Magnesium 2.5 mg/dl (1.8-2.4); Potassium 4.3 mmol/L (3.5-5.1)
[2021-08-01 15:57] LABS: Basophils # (auto) 0.06 K/uL (0-0.2); Basophils % (auto) 0.6 %; Immature Granulocytes # (auto) 0.04 K/uL (0.00-0.02); Immature Granulocytes % (auto) 0.4 %; Lymphocytes # (auto) 1.06 K/uL (1.2-3.4); Lymphocytes % (auto) 10.8 %; Monocytes # (auto) 0.84 K/uL (0.11-0.59); Monocytes % (auto) 8.5 %; Neutrophils # (auto) 7.83 K/uL (1.4-6.5); Neutrophils % (auto) 79.7 %
[2021-08-01] MEDS ORDERED: LORazepam 0.25 MG/0.5 ML VIAL IV STA (15:58)
--- NOTE | 2021-08-01 17:23 | Hospitalist Progress Note ---
Date of Service August 01, 2021 Assessment & Plan (1) Acute hypoxemic respiratory failure: Plan: Acute respiratory failure with hypoxia COVID-19 pneumonia -CXR:Compared to the previous examination, increased interstitial and alveolar opacities are now seen bilaterally, right greater than left characteristic of a viral type pneumonitis and probable Covid 19 pneumonia. CRP 9.8 Also on azithromycin, Rocephin for possible secondary bacterial infection Check procalcitonin in the morning-0.39 Blood cultures obtained-negative blood cultures Continue dexamethasone and remdesivir LFTs remain unremarkable Pulmonary hygiene, use of spirometer and flutter valve and also maintaining proning as much as possible Consider pulmonology evaluation if needed Clinically stable and feeling a little better-we will continue current management SVT Patient noted to be in SVT in the afternoon with a heart rate of 190 Likely secondary to hypoxic episode Reverted to sinus normal rhythm with intravenous adenosine 6 mg and then 12 mg Electrolytes have been normal Has been getting as needed Lopressor Has been on monitor Transaminitis Likely secondary to Covid Gallbladder ultrasound showed no acute abnormality Monitor LFTs-have been improving Bronchial asthma Continue steroids as above Nebs as needed Complicating Covid infection Prediabetes HbA1c 6.2 Mood disorder stable DVT Px: Lovenox SQ Code Status Full code Admission and Anticipated Discharge Date Admission Date: July 29, 2021 Subjective 07/31/2021 The patient was seen and examined in Covid unit He has been feeling a little better and trying to be in prone position to help himself He has cough and shortness of breath at rest and worse with minimal movement Has been requiring 30 L of oxygen to maintain saturation 08/01/2021 The patient was seen and examined in Covid unit He was noted to be in SVT with a heart rate of 190s during this afternoon EKG was done and he received adenosine 6 and then 12 mg and is reverted to sinus rhythm [place] palpitation but no chest pain Has been feeling the same as of yesterday Review of Systems Review of Systems: All systems reviewed and are unremarkable except as noted below Respiratory: Has moderate shortness of breath at rest Physical Exam Physical Exam: Lying in bed with moderate shortness of breath at rest Constitutional: well developed, well nourished and + ill appearing Eyes: PERRL, conjunctivae normal, anicteric sclerae ENMT: external ear and nose normal, oropharynx normal Neck: trachea midline, no thyromegaly Respiratory: no respiratory distress Auscultation: + diminished lung sounds and + crackles (Bibasilar crackles) Cardiovascular: Rate/Rhythm: regular rate, regular rhythm and + tachycardic Heart Sounds: normal S1 and normal S2; no murmur Extremities: no edema Gastrointestinal (Abdomen): Inspection/Auscultation: normal bowel sounds; abdomen not distended Percussion/Palpation: abdomen soft; abdomen nontender Musculoskeletal: No acute arthritis in any joint Neurologic: Alert, awake and oriented x3. No focal sensory and motor deficit appreciated Psychiatric: A+Ox3, euthymic affect Lymphatic: no cervical or axillary lymphadenopathy Results & Data Results & Data ([facility]) Vital Signs (Past 12 Hours) Vital Signs Temp Pulse Pulse Resp BP BP BP 08/01/21 15:49 85 08/01/21 15:40 113 H 08/01/21 15:30 101 H 32 H 08/01/21 14:52 118 H 121/84 08/01/21 14:00 37.9 C H 105 H 22 124/86 08/01/21 11:32 104 H 18 08/01/21 11:00 37.3 C 109 H 22 116/70 08/01/21 09:35 89 16 08/01/21 07:00 37.2 C 88 22 107/66 Pulse Ox 08/01/21 15:49 08/01/21 15:40 08/01/21 15:30 92 08/01/21 14:52 08/01/21 14:00 94 08/01/21 11:32 90 08/01/21 11:00 90 08/01/21 09:35 90 08/01/21 07:00 98 Laboratory Results Short CBC 08/01/21 Range/Units 14:19 WBC 9.83 (4.8-10.8) K/uL Hgb 15.7 (14.0-18.0) g/dL Hct 46.3 (42-52) % Plt Count 305 (130-400) K/uL BMP 08/01/21 08/01/21 06:15 14:19 Sodium 135 L Potassium 4.3 Chloride 104 Carbon Dioxide 24 BUN 24 H Creatinine 0.94 1.04 Glucose 225 H Calcium 8.4 L Medications Administered Current Inpatient Medications Acetaminophen (Acetaminophen 325 Mg Tab) 325 mg PO Q6H PRN PRN Reason: Mild Pain Stop: 08/28/21 22:44 Last Admin: 07/30/21 11:40 Dose: 325 mg Documented by: Azithromycin (Azithromycin 250 Mg Tab) 250 mg PO [facility] Stop: 08/03/21 08:59 Last Admin: 08/01/21 09:10 Dose: 250 mg Documented by: Enoxaparin Sodium (Enoxaparin Inj 40 Mg/0.4 Ml Syr) 40 mg SQ [facility] Stop: 08/29/21 08:59 Last Admin: 08/01/21 09:08 Dose: 40 mg Documented by: Fluticasone Propionate (Fluticasone Propionate Na Spr 16 Gm Btl) 2 sprays NA DAILY PRN PRN Reason: Congestion Stop: 08/28/21 22:44 Last Admin: 07/31/21 00:54 Dose: 2 sprays Documented by: Promethazine HCl 12.5 mg/ (Sodium Chloride) 50.5 mls @ 202 mls/hr IV Q6H PRN PRN Reason: Nausea And Vomiting Stop: 08/28/21 22:44 Dexamethasone 6 mg/ Syringe 1.5 mls @ 1 mls/min IV DAILY [facility] Stop: 08/08/21 09:02 Last Admin: 08/01/21 09:10 Dose: 1 mls/min Documented by: Ceftriaxone Sodium 2,000 mg/ (Dextrose) 70 mls @ 100 mls/hr IV Q[facility]H [facility]; Protocol Stop: 08/06/21 12:29 Last Infusion: 08/01/21 14:26 Dose: Infused Documented by: Remdesivir 100 mg/ Sodium (Chloride) 250 mls @ 250 mls/hr IV Q[facility]H [facility]; Protocol Stop: 08/03/21 20:59 Last Infusion: 07/31/21 21:01 Dose: Infused Documented by: Metoprolol Tartrate (Metoprolol Tartrate 1 Mg/Ml Vial) 2.5 mg IV Q6H PRN PRN Reason: Tachycardia Stop: 08/31/21 14:48 Last Admin: 08/01/21 14:52 Dose: 2.5 mg Documented by: Miscellaneous (Cyclosporine [Restasis]: Order Awaiting Action) 1 ea N/A QS [facility] Stop: 08/29/21 07:59 Last Admin: 08/01/21 15:08 Dose: Not Given Documented by: Sodium Chloride (Sodium Chloride 0.9% 10ml Flush) 30 ml IV Q24H [facility] Stop: 08/04/21 09:01 Last Admin: 08/01/21 09:07 Dose: Not Given Documented by: Tramadol HCl (Tramadol Hcl 50 Mg Tablet) 25 - 50 mg PO Q4H PRN PRN Reason: Pain Stop: 08/28/21 22:44 Last Admin: 07/30/21 08:10 Dose: 50 mg Documented by:
[2021-08-01] MEDS ORDERED: METOPROLOL TARTRATE 1 MG/ML VIAL IV SCH (18:00)
[2021-08-01] MEDS: REMDESIVIR 100 MG in SODIUM CHLORIDE 0.9% 230 ML IV SCH (19:14)
[2021-08-02 07:22] LABS: BUN Creatinine Ratio 24.8 (10-20); C Reactive Protein 1.65 mg/dl (0-0.29); Calcium 8.5 mg/dl (8.5-10.1); Creatinine Clr Calc Pharmacy 98.3 ml/min; Est GFR (African American) 114.5 ml/min; Est GFR (Non-African American) 98.8 ml/min; Potassium 4.2 mmol/L (3.5-5.1)
--- NOTE | 2021-08-02 08:36 | Electrocardiogram Report ---
Test Reason : Blood Pressure : / mmHG Vent. Rate : 197 BPM Atrial Rate : 300 BPM P-R Int : 000 ms QRS Dur : 074 ms QT Int : 238 ms P-R-T Axes : 000 032 259 degrees QTc Int : 431 ms Poor data quality, interpretation may be adversely affected Supraventricular tachycardia Nonspecific ST and T wave abnormality Abnormal ECG When compared with ECG of 29-JUL-2021 20:18, Vent. rate has increased BY 109 BPM Supraventricular tachycardia has replaced Sinus rhythm Nonspecific ST and T wave abnormality is now Present Confirmed by Shree Shrestha ([id number]) on 08/02/2021 8:36:22 AM Referred By: Scout Figueroa Confirmed By:Shree Shrestha
--- NOTE | 2021-08-02 08:38 | Electrocardiogram Report ---
Test Reason : Blood Pressure : / mmHG Vent. Rate : 117 BPM Atrial Rate : 117 BPM P-R Int : 136 ms QRS Dur : 072 ms QT Int : 320 ms P-R-T Axes : 045 023 014 degrees QTc Int : 446 ms Poor data quality, interpretation may be adversely affected Sinus tachycardia Nonspecific ST and T wave abnormality Abnormal ECG When compared with ECG of 01-AUG-2021 14:04, Vent. rate has decreased BY 80 BPM Sinus rhythm has replaced Supraventricular tachycardia ST no longer depressed in Inferior leads ST less depressed in Anterolateral leads Confirmed by Shree Shrestha ([id number]) on 08/02/2021 8:38:14 AM Referred By: Scout Figueroa Confirmed By:Shree Shrestha
[2021-08-02] MEDS: SODIUM CHLORIDE 0.9% 10ML FLUSH IV SCH ×2 (09:19→21:48)
[2021-08-02] MEDS: ENOXAPARIN INJ 40 MG/0.4 ML SYR SQ SCH (09:20)
[2021-08-02] MEDS: AZITHROMYCIN 250 MG TAB PO SCH (09:21)
[2021-08-02] MEDS: dexAMETHasone 6 MG in SYRINGE 0 ML IV SCH (09:21)
[2021-08-02] MEDS ORDERED: OPTIRAY 320 125ml IV ONE (11:45)
--- NOTE | 2021-08-02 12:06 | CT Scan Report ---
CT angio chest PE protocol CT DOSE: 487.45 mGy.cm HISTORY: 56 years-old Male with PE. Acute shortness of breath. COVID Positive. TECHNIQUE: Multiple CTA images of the chest were obtained after the intravenous administration of 89 ml Optiray. Coronal and sagittal MIPS were obtained from the axial data set and were submitted for [place]. All measurements were obtained according to NASCET criteria. A dose lowering technique was ut ilized adhering to the principles of ALARA. COMPARISON: Chest radiograph 07/31/2021, CT abdomen 11/21/2009. FINDINGS: CTA: The heart is normal in size. Trace pericardial effusion. No thoracic aortic aneurysm or dissection. T here is patency of the imaged great vessels. Unremarkable pulmonary artery. No filling defects identi fied to suggest thromboembolic disease. CT CHEST: No thyroid nodule. Mildly prominent mediastinal and hilar lymph nodes measure up to 9 mm. There is no pneumothorax or pleural effusion. Extensive bilateral multilobar groundglass opacities are present w ith mild intermixed patchy alveolar densities, greatest within the right lung. 5 mm nodule of the rig ht lower lobe, image 75 series 4. The central airways are patent. No acute process of the imaged upper abdomen. Unremarkable soft tissues. No acute fracture. No suspic ious bone lesion. IMPRESSION: 1. No pulmonary emboli. 2. Extensive bilateral multilobar groundglass opacities with patchy intermixed alveolar densities thr oughout the right lung. Findings are compatible with viral pneumonia. 3. Prominent likely reactive mediastinal and hilar adenopathy is likely reactive. 4. 5 mm solid nodule of the right lower lobe is new from the 2009 comparison, possibly a bronchovascu lar lymph node. Please refer to below summary of Fleischner criteria recommendations for follow-up of incidental CT n odules (Ani Gray, Guidelines for management of small pulmonary nodules detected on CT scans: A sta tement from the Fleischner Society, Radiology 237: [phone].) SOLID NODULES Solitary nodule size: <6 mm * Low risk patients: no follow-up needed * high risk patients: optional CT at 12 months Note: newly detected indeterminate nodule in persons 35 years of age or older. * Low risk patients: minimal or absent history of smoking and/or other known risk factors * high risk patients: history of smoking or of other known risk factors (e.g. first degree relative with lung cancer, or exposure to asbestos, radon, uranium) * if a nodule up to 8 mm is partly solid or is ground glass further follow-up is required after 24 m onths to exclude possible slow growing adenocarcinoma ([place]) ACT 112: Negative or not required by law. The above report was generated using voice recognition software. It may contain grammatical, syntax o r spelling errors. Electronically signed by: Niall Hernandez M.D. 08/02/2021 12:05 PM
[2021-08-02] MEDS: cefTRIAXone SODIUM 2,000 MG in DEXTROSE 5% 50 ML IV SCH (12:59)
[2021-08-02] MEDS: ACETAMINOPHEN 325 MG TAB PO PRN (16:37)
--- NOTE | 2021-08-02 17:12 | Hospitalist Progress Note ---
Date of Service August 02, 2021 Assessment & Plan (1) Acute hypoxemic respiratory failure: Plan: Acute respiratory failure with hypoxia COVID-19 pneumonia -CXR:Compared to the previous examination, increased interstitial and alveolar opacities are now seen bilaterally, right greater than left characteristic of a viral type pneumonitis and probable Covid 19 pneumonia. CRP 9.8 Also on azithromycin, Rocephin for possible secondary bacterial infection Check procalcitonin in the morning-0.39 Blood cultures obtained-negative blood cultures Continue dexamethasone and remdesivir LFTs remain unremarkable Pulmonary hygiene, use of spirometer and flutter valve and also maintaining proning as much as possible Consider pulmonology evaluation if needed Clinically stable and feeling a little better-we will continue current management SVT Patient noted to be in SVT in the afternoon with a heart rate of 190 Likely secondary to hypoxic episode Reverted to sinus normal rhythm with intravenous adenosine 6 mg and then 12 mg Electrolytes have been normal Has been getting as needed Lopressor Has been on monitor No more SVT but the patient remains tachycardic CTA did not show any pulmonary embolism but it did show extensive viral pneumonia Transaminitis Likely secondary to Covid Gallbladder ultrasound showed no acute abnormality Monitor LFTs-have been improving Bronchial asthma Continue steroids as above Nebs as needed Complicating Covid infection Prediabetes HbA1c 6.2 Mood disorder stable DVT Px: Lovenox SQ Code Status Full code Admission and Anticipated Discharge Date Admission Date: July 29, 2021 Subjective 07/31/2021 The patient was seen and examined in Covid unit He has been feeling a little better and trying to be in prone position to help himself He has cough and shortness of breath at rest and worse with minimal movement Has been requiring 30 L of oxygen to maintain saturation 08/01/2021 The patient was seen and examined in Covid unit He was noted to be in SVT with a heart rate of 190s during this afternoon EKG was done and he received adenosine 6 and then 12 mg and is reverted to sinus rhythm [place] palpitation but no chest pain Has been feeling the same as of yesterday 08/02/2021 The patient was seen and examined in Covid unit He is minimally better and he still requires 40 L of oxygen at 100% FiO2 to maintain saturation Remains tachycardic and we get CTA to rule out any pulmonary embolism Review of Systems Review of Systems: All systems reviewed and are unremarkable except as noted below Respiratory: Has moderate shortness of breath at rest Physical Exam Physical Exam: Lying in bed with moderate shortness of breath at rest Constitutional: well developed, well nourished and + ill appearing Eyes: PERRL, conjunctivae normal, anicteric sclerae ENMT: external ear and nose normal, oropharynx normal Neck: trachea midline, no thyromegaly Respiratory: no respiratory distress Auscultation: + diminished lung sounds and + crackles (Bibasilar crackles) Cardiovascular: Rate/Rhythm: regular rate, regular rhythm and + tachycardic Heart Sounds: normal S1 and normal S2; no murmur Extremities: no edema Gastrointestinal (Abdomen): Inspection/Auscultation: normal bowel sounds; abdomen not distended Percussion/Palpation: abdomen soft; abdomen nontender Psychiatric: A+Ox3, euthymic affect Lymphatic: no cervical or axillary lymphadenopathy Results & Data Results & Data ([facility]) Vital Signs (Past 12 Hours) Vital Signs Temp Pulse Pulse Resp BP BP Pulse Ox 08/02/21 15:07 37.6 C H 85 22 101/70 90 08/02/21 14:40 89 08/02/21 12:00 36.6 C 94 H 18 111/75 91 08/02/21 11:24 100 H 20 94 08/02/21 09:28 112 H 124/70 93 08/02/21 08:16 104 H 20 90 08/02/21 08:15 96 H 08/02/21 08:06 37.0 C 98 H 22 114/80 91 Laboratory Results [facility] 08/02/21 06:30 Sodium 137 Potassium 4.2 Chloride 105 Carbon Dioxide 25 BUN 21 H Creatinine 0.85 Glucose 132 H Calcium 8.5 Medications Administered Current Inpatient Medications Acetaminophen (Acetaminophen 325 Mg Tab) 325 mg PO Q6H PRN PRN Reason: Mild Pain Stop: 08/28/21 22:44 Last Admin: 08/02/21 16:37 Dose: 325 mg Documented by: Azithromycin (Azithromycin 250 Mg Tab) 250 mg PO [facility] Stop: 08/03/21 08:59 Last Admin: 08/02/21 09:21 Dose: 250 mg Documented by: Enoxaparin Sodium (Enoxaparin Inj 40 Mg/0.4 Ml Syr) 40 mg SQ [facility] Stop: 08/29/21 08:59 Last Admin: 08/02/21 09:20 Dose: 40 mg Documented by: Fluticasone Propionate (Fluticasone Propionate Na Spr 16 Gm Btl) 2 sprays NA DAILY PRN PRN Reason: Congestion Stop: 08/28/21 22:44 Last Admin: 07/31/21 00:54 Dose: 2 sprays Documented by: Promethazine HCl 12.5 mg/ (Sodium Chloride) 50.5 mls @ 202 mls/hr IV Q6H PRN PRN Reason: Nausea And Vomiting Stop: 08/28/21 22:44 Dexamethasone 6 mg/ Syringe 1.5 mls @ 1 mls/min IV DAILY [facility] Stop: 08/08/21 09:02 Last Admin: 08/02/21 09:21 Dose: 1 mls/min Documented by: Ceftriaxone Sodium 2,000 mg/ (Dextrose) 70 mls @ 100 mls/hr IV Q24H [facility]; Protocol Stop: 08/06/21 12:29 Last Infusion: 08/02/21 13:53 Dose: Infused Documented by: Remdesivir 100 mg/ Sodium (Chloride) 250 mls @ 250 mls/hr IV Q24H [facility]; Protocol Stop: 08/03/21 20:59 Last Infusion: 08/01/21 20:17 Dose: Infused Documented by: Metoprolol Tartrate (Metoprolol Tartrate 1 Mg/Ml Vial) 2.5 mg IV Q6H PRN PRN Reason: Tachycardia Stop: 08/31/21 14:48 Last Admin: 08/01/21 14:52 Dose: 2.5 mg Documented by: Miscellaneous (Cyclosporine [Restasis]: Order Awaiting Action) 1 ea N/A QS [facility] Stop: 08/29/21 07:59 Last Admin: 08/02/21 09:10 Dose: Not Given Documented by: Sodium Chloride (Sodium Chloride 0.9% 10ml Flush) 30 ml IV Q24H [facility] Stop: 08/04/21 09:01 Last Admin: 08/02/21 09:19 Dose: Not Given Documented by: Tramadol HCl (Tramadol Hcl 50 Mg Tablet) 25 - 50 mg PO Q4H PRN PRN Reason: Pain Stop: 08/28/21 22:44 Last Admin: 07/30/21 08:10 Dose: 50 mg Documented by:
[2021-08-02] MEDS: REMDESIVIR 100 MG in SODIUM CHLORIDE 0.9% 230 ML IV SCH (20:25)
[2021-08-03] MEDS: dexAMETHasone 6 MG in SYRINGE 0 ML IV SCH (08:21)
[2021-08-03] MEDS: ENOXAPARIN INJ 40 MG/0.4 ML SYR SQ SCH (08:22)
[2021-08-03 09:24] LABS: Albumin Level 2.5 gm/dl (3.4-5.0); BUN Creatinine Ratio 27.4 (10-20); Calcium 8.6 mg/dl (8.5-10.1); Creatinine Clr Calc Pharmacy 100.4 ml/min; Est GFR (African American) 115.6 ml/min; Est GFR (Non-African American) 99.8 ml/min; Potassium 4.3 mmol/L (3.5-5.1)
[2021-08-03 09:26] LABS: Albumin Globulin Ratio 0.6 (0.9-2); Bilirubin,Total 0.5 mg/dl (0.2-1); Globulin 4.5 gm/dl (2.5-4.0)
[2021-08-03] MEDS: cefTRIAXone SODIUM 2,000 MG in DEXTROSE 5% 50 ML IV SCH (11:15)
[2021-08-03] MEDS ORDERED: FUROSEMIDE 40 MG/4 ML VIAL IV ONE (13:12)
--- NOTE | 2021-08-03 14:34 | Hospitalist Progress Note ---
Date of Service August 03, 2021 Assessment & Plan (1) Acute hypoxemic respiratory failure: Plan: Acute respiratory failure with hypoxia COVID-19 pneumonia -CXR:Compared to the previous examination, increased interstitial and alveolar opacities are now seen bilaterally, right greater than left characteristic of a viral type pneumonitis and probable Covid 19 pneumonia. CRP 9.8 Also on azithromycin, Rocephin for possible secondary bacterial infection Check procalcitonin in the morning-0.39 Blood cultures obtained-negative blood cultures Continue dexamethasone and remdesivir LFTs remain unremarkable Pulmonary hygiene, use of spirometer and flutter valve and also maintaining proning as much as possible Consider pulmonology evaluation if needed Clinically stable and feeling a little better-we will continue current management CTA did not show any pulmonary embolism but did show extensive bilateral viral pneumonia We will give a dose of Lasix today and will continue current management SVT Patient noted to be in SVT in the afternoon with a heart rate of 190 Likely secondary to hypoxic episode Reverted to sinus normal rhythm with intravenous adenosine 6 mg and then 12 mg Electrolytes have been normal Has been getting as needed Lopressor Has been on monitor No more SVT but the patient remains tachycardic CTA did not show any pulmonary embolism but it did show extensive viral pneumonia No more SVT Transaminitis Likely secondary to Covid Gallbladder ultrasound showed no acute abnormality Monitor LFTs-have been improving Bronchial asthma Continue steroids as above Nebs as needed Complicating Covid infection Prediabetes HbA1c 6.2 Mood disorder stable DVT Px: Lovenox SQ Code Status Full code Admission and Anticipated Discharge Date Admission Date: July 29, 2021 Subjective 07/31/2021 The patient was seen and examined in Covid unit He has been feeling a little better and trying to be in prone position to help himself He has cough and shortness of breath at rest and worse with minimal movement Has been requiring 30 L of oxygen to maintain saturation 08/01/2021 The patient was seen and examined in Covid unit He was noted to be in SVT with a heart rate of 190s during this afternoon EKG was done and he received adenosine 6 and then 12 mg and is reverted to sinus rhythm [place] palpitation but no chest pain Has been feeling the same as of yesterday 08/02/2021 The patient was seen and examined in Covid unit He is minimally better and he still requires 40 L of oxygen at 100% FiO2 to maintain saturation Remains tachycardic and we get CTA to rule out any pulmonary embolism 08/03/2021 The patient was seen and examined in Covid unit His condition has not improved and is still requiring 40 L at 90% FiO2 to maintain saturation Has been proning as much as he can No more SVT Review of Systems Review of Systems: All systems reviewed and are unremarkable except as noted below Respiratory: Has moderate shortness of breath at rest Physical Exam Physical Exam: Lying in bed with moderate shortness of breath at rest Constitutional: well developed, well nourished and + ill appearing Eyes: PERRL, conjunctivae normal, anicteric sclerae ENMT: external ear and nose normal, oropharynx normal Neck: trachea midline, no thyromegaly Respiratory: no respiratory distress Auscultation: + diminished lung sounds and + crackles (Bibasilar crackles) Cardiovascular: Rate/Rhythm: regular rate, regular rhythm and + tachycardic Heart Sounds: normal S1 and normal S2; no murmur Extremities: no edema Gastrointestinal (Abdomen): Inspection/Auscultation: normal bowel sounds; abdomen not distended Percussion/Palpation: abdomen soft; abdomen nontender Neurologic: Alert, awake and oriented x3. No focal sensory or no motor deficit appreciated Psychiatric: A+Ox3, euthymic affect Lymphatic: no cervical or axillary lymphadenopathy Results & Data Results & Data ([facility]) Vital Signs (Past 12 Hours) Vital Signs Temp Pulse Resp BP BP Pulse Ox 08/03/21 11:42 36.8 C 84 26 H 118/76 90 08/03/21 10:53 91 H 22 94 08/03/21 08:31 36.7 C 79 22 117/69 88 L 08/03/21 08:30 76 22 90 08/03/21 05:40 88 24 90 08/03/21 03:31 36.9 C 86 20 113/71 92 Laboratory Results [facility] 08/03/21 07:25 Sodium 136 Potassium 4.3 Chloride 103 Carbon Dioxide 26 BUN 23 H Creatinine 0.83 Glucose 118 H Calcium 8.6 Liver Function 08/03/21 Range/Units 07:25 Total Bilirubin 0.5 (0.2-1) mg/dl AST 46 H (15-37) U/L ALT 82 H (12-78) Alkaline Phosphatase 91 (45-117) U/L Albumin 2.5 L (3.4-5.0) gm/dl Medications Administered Current Inpatient Medications Acetaminophen (Acetaminophen 325 Mg Tab) 325 mg PO Q6H PRN PRN Reason: Mild Pain Stop: 08/28/21 22:44 Last Admin: 08/02/21 16:37 Dose: 325 mg Documented by: Enoxaparin Sodium (Enoxaparin Inj 40 Mg/0.4 Ml Syr) 40 mg SQ QAM BENJAMÍN Stop: 08/29/21 08:59 Last Admin: 08/03/21 08:22 Dose: 40 mg Documented by: Fluticasone Propionate (Fluticasone Propionate Na Spr 16 Gm Btl) 2 sprays NA DAILY PRN PRN Reason: Congestion Stop: 08/28/21 22:44 Last Admin: 07/31/21 00:54 Dose: 2 sprays Documented by: Promethazine HCl 12.5 mg/ (Sodium Chloride) 50.5 mls @ 202 mls/hr IV Q6H PRN PRN Reason: Nausea And Vomiting Stop: 08/28/21 22:44 Dexamethasone 6 mg/ Syringe 1.5 mls @ 1 mls/min IV DAILY [facility] Stop: 08/08/21 09:02 Last Admin: 08/03/21 08:21 Dose: 1 mls/min Documented by: Ceftriaxone Sodium 2,000 mg/ (Dextrose) 70 mls @ 100 mls/hr IV Q24H [facility]; Protocol Stop: 08/06/21 12:29 Last Infusion: 08/03/21 12:05 Dose: Infused Documented by: Remdesivir 100 mg/ Sodium (Chloride) 250 mls @ 250 mls/hr IV Q24H [facility]; Protocol Stop: 08/03/21 20:59 Last Infusion: 08/02/21 21:52 Dose: Infused Documented by: Metoprolol Tartrate (Metoprolol Tartrate 1 Mg/Ml Vial) 2.5 mg IV Q6H PRN PRN Reason: Tachycardia Stop: 08/31/21 14:48 Last Admin: 08/01/21 14:52 Dose: 2.5 mg Documented by: Miscellaneous (Cyclosporine [Restasis]: Order Awaiting Action) 1 ea N/A QS [facility] Stop: 08/29/21 07:59 Last Admin: 08/03/21 11:15 Dose: Not Given Documented by: Sodium Chloride (Sodium Chloride 0.9% 10ml Flush) 30 ml IV Q24H [facility]N Stop: 08/04/21 09:01 Last Admin: 08/02/21 21:48 Dose: 30 ml Documented by: Tramadol HCl (Tramadol Hcl 50 Mg Tablet) 25 - 50 mg PO Q4H PRN PRN Reason: Pain Stop: 08/28/21 22:44 Last Admin: 07/30/21 08:10 Dose: 50 mg Documented by:
[2021-08-03] MEDS: FLUTICASONE PROPIONATE NA SPR 16 GM BTL PRN (18:00)
[2021-08-03] MEDS: REMDESIVIR 100 MG in SODIUM CHLORIDE 0.9% 230 ML IV SCH (20:15)
[2021-08-03] MEDS: SODIUM CHLORIDE 0.9% 10ML FLUSH IV SCH (21:31)
[2021-08-04] MEDS: LORazepam 0.25 MG/0.5 ML VIAL IV PRN ×2 (08:49→12:58)
[2021-08-04] MEDS: dexAMETHasone 6 MG in SYRINGE 0 ML IV SCH (08:55)
[2021-08-04] MEDS: ENOXAPARIN INJ 40 MG/0.4 ML SYR SQ SCH (08:55)
[2021-08-04] MEDS ORDERED: FUROSEMIDE 40 MG/4 ML VIAL IV ONE (11:30)
[2021-08-04 11:32] LABS: BUN Creatinine Ratio 24.5 (10-20); Calcium 9.2 mg/dl (8.5-10.1); Creatinine Clr Calc Pharmacy 80.3 ml/min; Est GFR (African American) 93.9 ml/min; Potassium 4.2 mmol/L (3.5-5.1)
[2021-08-04 11:33] LABS: Phosphorus 3.6 mg/dl (2.5-4.9)
[2021-08-04] MEDS ORDERED: dexAMETHasone 4 MG in SYRINGE 0 ML IV ONE (11:45)
[2021-08-04] MEDS: cefTRIAXone SODIUM 2,000 MG in DEXTROSE 5% 50 ML IV SCH (12:58)
--- NOTE | 2021-08-04 14:40 | Hospitalist Progress Note ---
Date of Service August 04, 2021 Assessment & Plan (1) Acute hypoxemic respiratory failure: Plan: Acute respiratory failure with hypoxia COVID-19 pneumonia -CXR:Compared to the previous examination, increased interstitial and alveolar opacities are now seen bilaterally, right greater than left characteristic of a viral type pneumonitis and probable Covid 19 pneumonia. CRP 9.8 Also on azithromycin, Rocephin for possible secondary bacterial infection Check procalcitonin in the morning-0.39 Blood cultures obtained-negative blood cultures Continue dexamethasone and remdesivir LFTs remain unremarkable Pulmonary hygiene, use of spirometer and flutter valve and also maintaining proning as much as possible Consider pulmonology evaluation if needed Clinically stable and feeling a little better-we will continue current management CTA did not show any pulmonary embolism but did show extensive bilateral viral pneumonia We will give a dose of Lasix today and will continue current management Still requiring very high flow oxygen to maintain saturation-we will increase Decadron to 10 mg daily and continue Lasix 40 mg IV daily Remains very anxious Try very small dose of Ativan during the daytime and melatonin at night for sleeping SVT Patient noted to be in SVT in the afternoon with a heart rate of 190 Likely secondary to hypoxic episode Reverted to sinus normal rhythm with intravenous adenosine 6 mg and then 12 mg Electrolytes have been normal Has been getting as needed Lopressor Has been on monitor No more SVT but the patient remains tachycardic CTA did not show any pulmonary embolism but it did show extensive viral pneumonia No more SVT Transaminitis Likely secondary to Covid Gallbladder ultrasound showed no acute abnormality Monitor LFTs-have been improving Bronchial asthma Continue steroids as above Nebs as needed Complicating Covid infection Prediabetes HbA1c 6.2 Mood disorder stable DVT Px: Lovenox SQ Code Status Full code Admission and Anticipated Discharge Date Admission Date: July 29, 2021 Subjective 07/31/2021 The patient was seen and examined in Covid unit He has been feeling a little better and trying to be in prone position to help himself He has cough and shortness of breath at rest and worse with minimal movement Has been requiring 30 L of oxygen to maintain saturation 08/01/2021 The patient was seen and examined in Covid unit He was noted to be in SVT with a heart rate of 190s during this afternoon EKG was done and he received adenosine 6 and then 12 mg and is reverted to sinus rhythm [place] palpitation but no chest pain Has been feeling the same as of yesterday 08/02/2021 The patient was seen and examined in Covid unit He is minimally better and he still requires 40 L of oxygen at 100% FiO2 to maintain saturation Remains tachycardic and we get CTA to rule out any pulmonary embolism 08/03/2021 The patient was seen and examined in Covid unit His condition has not improved and is still requiring 40 L at 90% FiO2 to maintain saturation Has been proning as much as he can No more SVT 08/04/2021 The patient was seen and examined in Covid unit He has been very anxious and has not been sleeping at night Still requiring high flow oxygen to maintain saturation Review of Systems Review of Systems: All systems reviewed and are unremarkable except as noted below Respiratory: Has moderate shortness of breath at rest Physical Exam Physical Exam: Lying in bed with moderate shortness of breath at rest Constitutional: well developed, well nourished and + ill appearing Eyes: PERRL, conjunctivae normal, anicteric sclerae ENMT: external ear and nose normal, oropharynx normal Neck: trachea midline, no thyromegaly Respiratory: no respiratory distress Auscultation: + diminished lung sounds and + crackles (Bibasilar crackles) Cardiovascular: Rate/Rhythm: regular rate, regular rhythm and + tachycardic Heart Sounds: normal S1 and normal S2; no murmur Extremities: no edema Gastrointestinal (Abdomen): Inspection/Auscultation: normal bowel sounds; abdomen not distended Percussion/Palpation: abdomen soft; abdomen nontender Musculoskeletal: No acute arthritis in any joint Neurologic: Alert, awake and oriented x3 Psychiatric: A+Ox3, euthymic affect Lymphatic: no cervical or axillary lymphadenopathy Results & Data Results & Data ([facility]) Vital Signs (Past 12 Hours) Vital Signs Temp Pulse Pulse Resp BP Pulse Ox Pulse Ox 08/04/21 12:06 103 H 20 95 08/04/21 12:04 36.7 C 103 H 20 121/85 95 08/04/21 08:27 90 20 98 08/04/21 07:24 94 08/04/21 07:22 36.7 C 112 H 22 121/80 92 08/04/21 04:22 36.4 C L 107 H 22 117/89 [address] [facility] 08/04/21 10:32 Sodium 136 Potassium 4.2 Chloride 100 Carbon Dioxide 29 BUN 25 H Creatinine 1.04 Glucose 144 H Calcium 9.2 Medications Administered Current Inpatient Medications Acetaminophen (Acetaminophen 325 Mg Tab) 325 mg PO Q6H PRN PRN Reason: Mild Pain Stop: 08/28/21 22:44 Last Admin: 08/02/21 16:37 Dose: 325 mg Documented by: Enoxaparin Sodium (Enoxaparin Inj 40 Mg/0.4 Ml Syr) 40 mg SQ QAM [facility] Stop: 08/29/21 08:59 Last Admin: 08/04/21 08:55 Dose: 40 mg Documented by: Fluticasone Propionate (Fluticasone Propionate Na Spr 16 Gm Btl) 2 sprays NA DAILY PRN PRN Reason: Congestion Stop: 08/28/21 22:44 Last Admin: 08/03/21 18:00 Dose: 2 sprays Documented by: Promethazine HCl 12.5 mg/ (Sodium Chloride) 50.5 mls @ 202 mls/hr IV Q6H PRN PRN Reason: Nausea And Vomiting Stop: 08/28/21 22:44 Ceftriaxone Sodium 2,000 mg/ (Dextrose) 70 mls @ 100 mls/hr IV Q24H [facility]; Protocol Stop: 08/06/21 12:29 Last Admin: 08/04/21 12:58 Dose: 100 mls/hr Documented by: Lorazepam (Ativan) 0.25 mg in 0.5 mls @ 0.5 mls/min IV Q4H PRN PRN Reason: Anxiety Stop: 09/03/21 07:41 Last Admin: 08/04/21 12:58 Dose: 0.5 mls/min Documented by: Dexamethasone 10 mg/ Syringe 2.5 mls @ 1 mls/min IV DAILY [facility] Stop: 08/08/21 09:03 Melatonin (Melatonin 3 Mg Tab) 3 mg PO HS PRN PRN Reason: Sleep Stop: 09/03/21 11:14 Metoprolol Tartrate (Metoprolol Tartrate 1 Mg/Ml Vial) 2.5 mg IV Q6H PRN PRN Reason: Tachycardia Stop: 08/31/21 14:48 Last Admin: 08/01/21 14:52 Dose: 2.5 mg Documented by: Miscellaneous (Cyclosporine [Restasis]: Order Awaiting Action) 1 ea N/A QS [facility] Stop: 08/29/21 07:59 Last Admin: 08/04/21 09:09 Dose: Not Given Documented by: Tramadol HCl (Tramadol Hcl 50 Mg Tablet) 25 - 50 mg PO Q4H PRN PRN Reason: Pain Stop: 08/28/21 22:44 Last Admin: 07/30/21 08:10 Dose: 50 mg Documented by:
[2021-08-05] MEDS: MELATONIN 3 MG TAB PO PRN (03:51)
[2021-08-05] MEDS: FLUTICASONE PROPIONATE NA SPR 16 GM BTL PRN (03:51)
[2021-08-05] MEDS ORDERED: ADENOSINE IV SOLN 3 MG/ML 2 ML VIAL IV ONE (04:48)
[2021-08-05 07:18] LABS: BUN Creatinine Ratio 26.1 (10-20); Creatinine Clr Calc Pharmacy 73.2 ml/min; Est GFR (Non-African American) 72.5 ml/min; Potassium 3.7 mmol/L (3.5-5.1)
[2021-08-05] MEDS: dexAMETHasone 10 MG in SYRINGE 0 ML IV SCH (08:53)
[2021-08-05] MEDS: ENOXAPARIN INJ 40 MG/0.4 ML SYR SQ SCH (08:53)
[2021-08-05] MEDS: FUROSEMIDE 40 MG/4 ML VIAL IV SCH (08:54)
--- NOTE | 2021-08-05 09:12 | Cardiology Consultation ---
Date of Consultation August 05, 2021 Assessment & Plan (1) Acute hypoxemic respiratory failure: (2) Hypoxemia: (3) Pneumonia due to 2019 novel coronavirus: (4) Multifocal pneumonia: (5) SVT (supraventricular tachycardia): 56 yo unvaccinated male admitted with severe hypoxic respiratory failure due to Covid 19 associated pneumonia. SVT is an expected sequelae of prolonged hypoxic respiratory failure pt with hx of reactive airway disease and would be cautious with beta blockade given hypoxia May also consider diltiazem 30mg po q6 treatment for underlying hypoxic respiratory failure as per primary team History of Present Illness Reason for Consultation: SVT Requesting Physician: Dr. Dominguez Attending Physician: Stefan Dominguez MD History of Present Illness 56 yo unvaccinated male admitted with severe hypoxic respiratory failure due to Covid 19 associated pneumonia. Since admission on 07/29/2021 the patient has been tachycardic and an episode of prolonged SVT on 08/03/2021. This occurred during an episode of hypoxia. Still requiring high flow O2 to maintain saturations. Allergies Allergy/AdvReac Type Severity Reaction Status Date / Time No Known Allergies Allergy Verified 07/29/21 19:52 Home Medications Medication Instructions Recorded Confirmed Type acetaminophen 500 mg tablet 1,000 mg PO DIRECTED PRN 07/28/21 07/29/21 History (Tylenol Extra Strength) albuterol sulfate 90 mcg/actuation 1 - 2 inh INHALATION DIRECTED 07/28/21 07/29/21 History aerosol inhaler PRN cyclosporine 0.05 % eye drops in a 1 drp OPB BID 07/28/21 07/29/21 History dropperette (Restasis) diphenhydramine HCl 25 mg capsule 25 - 50 mg PO DIRECTED PRN 07/28/21 07/29/21 History (Benadryl) fluticasone propionate 50 2 spray INTRANASAL DAILY PRN 07/28/21 07/29/21 History mcg/actuation nasal spray,suspension ibuprofen 200 mg tablet (Advil) 200 - 400 mg PO DIRECTED PRN 07/28/21 1 History guaifenesin 600 mg tablet, 600 mg PO BID PRN 07/29/21 07/29/21 History extended release 12 hr (Mucinex) Patient History Medical History Asthma Social History Smoking Status: Never smoker Hx Alcohol Use: Yes Hx Substance Use: No Preferred Language: Ukrainian Communication Ability: Effective Seam Presser Required: No Beliefs That Will Affect Care: None marital status: Current Living Situation: Spouse Other Information That Helps Us Care for You: No Feels Safe at Home: Yes Safety Concerns: Feels Safe At This Time Assistive Devices: Glasses and Oxygen - Continuous Review of Systems Review of Systems: All systems reviewed & are unremarkable except as noted in HPI & below Physical Exam Physical Exam: Deferred in order to reduce staff exposure to Covid 19 Results & Data ([facility]) Vital Signs (Past 12 Hours) Vital Signs Temp Pulse Pulse Pulse Resp BP Pulse Ox 08/05/21 07:40 106 H 19 93 08/05/21 07:31 36.7 C 110 H 25 H 97/78 L 100 08/05/21 05:57 36.8 C 109 H 16 117/82 93 08/05/21 05:33 111 H 30 H 93 08/05/21 03:46 36.6 C 99 H 18 112/76 91 08/05/21 02:37 94 H 24 96 08/04/21 23:45 88 08/04/21 22:45 90 30 H 91 08/04/21 22:27 36.7 C 85 18 128/87 91
--- NOTE | 2021-08-05 09:39 | Hospitalist Progress Note ---
Date of Service August 05, 2021 Assessment & Plan Admission and Anticipated Discharge Date Admission Date: July 29, 2021 Subjective Early in am today patient went into SVT with heart rates in 200's. SBP in 70's. Patient sitting on bed. Mentating fine. denies any symptoms. Fluid bolus started and SBP > 80. A dose of adenosine 6mg given and nothing happened. After about 2 minutes another dose of adenosine 12mg given and heart rates improved to 110 range. BP improved. patient feeling better.Transferred to [facility]. Consulted cardiology as this is second episode from yesterday. Results & Data Results & Data ([facility]) Vital Signs (Past 12 Hours) Vital Signs Temp Pulse Pulse Pulse Resp BP Pulse Ox 08/05/21 07:40 106 H 19 93 08/05/21 07:31 36.7 C 110 H 25 H 97/78 L 100 08/05/21 05:57 36.8 C 109 H 16 117/82 93 08/05/21 05:33 111 H 30 H 93 08/05/21 03:46 36.6 C 99 H 18 112/76 91 08/05/21 02:37 94 H 24 96 08/04/21 23:45 88 08/04/21 22:45 90 30 H 91 08/04/21 22:27 36.7 C 85 18 128/87 91
[2021-08-05] MEDS: cefTRIAXone SODIUM 2,000 MG in DEXTROSE 5% 50 ML IV SCH (11:43)
[2021-08-05] MEDS ORDERED: SODIUM CHLORIDE 0.65% NA SOLN 45 ML (OCEAN) ONE (13:36)
[2021-08-05] MEDS: LORazepam 0.25 MG/0.5 ML VIAL IV PRN ×2 (13:39→19:58)
--- NOTE | 2021-08-05 14:52 | Hospitalist Progress Note ---
Date of Service August 05, 2021 Assessment & Plan (1) Acute hypoxemic respiratory failure: Plan: Acute respiratory failure with hypoxia COVID-19 pneumonia -CXR:Compared to the previous examination, increased interstitial and alveolar opacities are now seen bilaterally, right greater than left characteristic of a viral type pneumonitis and probable Covid 19 pneumonia. CRP 9.8 Also on azithromycin, Rocephin for possible secondary bacterial infection Check procalcitonin in the morning-0.39 Blood cultures obtained-negative blood cultures Continue dexamethasone and remdesivir LFTs remain unremarkable Pulmonary hygiene, use of spirometer and flutter valve and also maintaining proning as much as possible Consider pulmonology evaluation if needed Clinically stable and feeling a little better-we will continue current management CTA did not show any pulmonary embolism but did show extensive bilateral viral pneumonia We will give a dose of Lasix today and will continue current management Still requiring very high flow oxygen to maintain saturation-we will increase Decadron to 10 mg daily and continue Lasix 40 mg IV daily Clinically a little better but is still requiring high flow oxygen Remains very anxious Try very small dose of Ativan during the daytime and melatonin at night for sleeping SVT Patient noted to be in SVT in the afternoon with a heart rate of 190 Likely secondary to hypoxic episode Reverted to sinus normal rhythm with intravenous adenosine 6 mg and then 12 mg Electrolytes have been normal Has been getting as needed Lopressor Has been on monitor No more SVT but the patient remains tachycardic CTA did not show any pulmonary embolism but it did show extensive viral pneumonia Another attack of SVT last night and was transferred to telemetry unit Appreciate cardiology input and [id number] has to be used cautiously Transaminitis Likely secondary to Covid Gallbladder ultrasound showed no acute abnormality Monitor LFTs-have been improving Bronchial asthma Continue steroids as above Nebs as needed Complicating Covid infection Prediabetes HbA1c 6.2 Mood disorder stable DVT Px: Lovenox SQ Code Status Full code Admission and Anticipated Discharge Date Admission Date: July 29, 2021 Subjective 07/31/2021 The patient was seen and examined in Covid unit He has been feeling a little better and trying to be in prone position to help himself He has cough and shortness of breath at rest and worse with minimal movement Has been requiring 30 L of oxygen to maintain saturation 08/01/2021 The patient was seen and examined in Covid unit He was noted to be in SVT with a heart rate of 190s during this afternoon EKG was done and he received adenosine 6 and then 12 mg and is reverted to sinus rhythm [place] palpitation but no chest pain Has been feeling the same as of yesterday 08/02/2021 The patient was seen and examined in Covid unit He is minimally better and he still requires 40 L of oxygen at 100% FiO2 to maintain saturation Remains tachycardic and we get CTA to rule out any pulmonary embolism 08/03/2021 The patient was seen and examined in Covid unit His condition has not improved and is still requiring 40 L at 90% FiO2 to maintain saturation Has been proning as much as he can No more SVT 08/04/2021 The patient was seen and examined in Covid unit He has been very anxious and has not been sleeping at night Still requiring high flow oxygen to maintain saturation 08/05/2021 The patient was seen and examined in telemetry unit and in the Covid room He was transferred to telemetry unit with another attack of SVT The SVT was treated with intravenous adenosine and cardiology was consulted He has been feeling a little better and is still requiring high flow oxygen via nasal cannula Review of Systems Review of Systems: All systems reviewed and are unremarkable except as noted below Respiratory: Has moderate shortness of breath at rest Physical Exam Physical Exam: Lying in bed with moderate shortness of breath at rest Constitutional: well developed, well nourished and + ill appearing Eyes: PERRL, conjunctivae normal, anicteric sclerae ENMT: external ear and nose normal, oropharynx normal Neck: trachea midline, no thyromegaly Respiratory: no respiratory distress Auscultation: + diminished lung sounds and + crackles (Bibasilar crackles) Cardiovascular: Rate/Rhythm: regular rate, regular rhythm and + tachycardic Heart Sounds: normal S1 and normal S2; no murmur Extremities: no edema Gastrointestinal (Abdomen): Inspection/Auscultation: normal bowel sounds; abdomen not distended Percussion/Palpation: abdomen soft; abdomen nontender Musculoskeletal: Acute arthritis in any joint Neurologic: Alert, awake and oriented x3. Generally weak Psychiatric: A+Ox3, euthymic affect Lymphatic: no cervical or axillary lymphadenopathy Results & Data Results & Data ([facility]) Vital Signs (Past 12 Hours) Vital Signs Temp Pulse Pulse Resp BP Pulse Ox Pulse Ox 08/05/21 11:20 107 H 23 90 08/05/21 10:53 37.4 C 112 H 24 104/75 89 L 08/05/21 07:40 106 H 19 93 08/05/21 07:31 36.7 C 110 H 25 H 97/78 L 100 08/05/21 07:00 100 08/05/21 05:57 36.8 C 109 H 16 117/82 93 08/05/21 05:33 111 H 30 H 93 08/05/21 03:46 36.6 C 99 H 18 112/76 91 Laboratory Results [facility] 08/05/21 06:20 Sodium 136 Potassium 3.7 Chloride 100 Carbon Dioxide 26 BUN 30 H Creatinine 1.14 Glucose 188 H Calcium 9.0 Medications Administered Current Inpatient Medications Acetaminophen (Acetaminophen 325 Mg Tab) 325 mg PO Q6H PRN PRN Reason: Mild Pain Stop: 08/28/21 22:44 Last Admin: 08/02/21 16:37 Dose: 325 mg Documented by: Enoxaparin Sodium (Enoxaparin Inj 40 Mg/0.4 Ml Syr) 40 mg SQ QAM [facility] Stop: 08/29/21 08:59 Last Admin: 08/05/21 08:53 Dose: 40 mg Documented by: Fluticasone Propionate (Fluticasone Propionate Na Spr 16 Gm Btl) 2 sprays NA DAILY PRN PRN Reason: Congestion Stop: 08/28/21 22:44 Last Admin: 08/05/21 03:51 Dose: 2 sprays Documented by: Furosemide (Furosemide 40 Mg/4 Ml Vial) 40 mg IV DAILY [facility] Stop: 09/04/21 08:59 Last Admin: 08/05/21 08:54 Dose: 40 mg Documented by: Promethazine HCl 12.5 mg/ (Sodium Chloride) 50.5 mls @ 202 mls/hr IV Q6H PRN PRN Reason: Nausea And Vomiting Stop: 08/28/21 22:44 Ceftriaxone Sodium 2,000 mg/ (Dextrose) 70 mls @ 100 mls/hr IV Q24H [facility]; Protocol Stop: 08/06/21 12:29 Last Infusion: 08/05/21 12:44 Dose: Infused Documented by: Lorazepam (Ativan) 0.25 mg in 0.5 mls @ 0.5 mls/min IV Q4H PRN PRN Reason: Anxiety Stop: 09/03/21 07:41 Last Admin: 08/05/21 13:39 Dose: 0.5 mls/min Documented by: Dexamethasone 10 mg/ Syringe 2.5 mls @ 1 mls/min IV DAILY [facility] Stop: 08/08/21 09:03 Last Admin: 08/05/21 08:53 Dose: 1 mls/min Documented by: Melatonin (Melatonin 3 Mg Tab) 3 mg PO HS PRN PRN Reason: Sleep Stop: 09/03/21 11:14 Last Admin: 08/05/21 03:51 Dose: 3 mg Documented by: Metoprolol Tartrate (Metoprolol Tartrate 1 Mg/Ml Vial) 2.5 mg IV Q6H PRN PRN Reason: Tachycardia Stop: 08/31/21 14:48 Last Admin: 08/01/21 14:52 Dose: 2.5 mg Documented by: Miscellaneous (Cyclosporine [Restasis]: Order Awaiting Action) 1 ea N/A QS [facility] Stop: 08/29/21 07:59 Last Admin: 08/05/21 08:52 Dose: Not Given Documented by: Tramadol HCl (Tramadol Hcl 50 Mg Tablet) 25 - 50 mg PO Q4H PRN PRN Reason: Pain Stop: 08/28/21 22:44 Last Admin: 07/30/21 08:10 Dose: 50 mg Documented by:
[2021-08-06 06:37] LABS: Basophils # (auto) 0.01 K/uL (0-0.2); Basophils % (auto) 0.1 %; Eosinophils # (auto) 0.11 K/uL (0-0.5); Eosinophils % (auto) 0.7 %; Hemoglobin 17.4 g/dL (14.0-18.0); Immature Granulocytes # (auto) 0.08 K/uL (0.00-0.02); Immature Granulocytes % (auto) 0.5 %; Lymphocytes # (auto) 0.87 K/uL (1.2-3.4); Lymphocytes % (auto) 5.8 %; Mean Corpuscular Hemoglobin 30.9 pg (25-34); Mean Corpuscular Hgb Conc 34.1 g/dL (32-36); Mean Corpuscular Volume 90.4 fL (80-100); Mean Platelet Volume 10.7 fL (7.4-10.4); Monocytes # (auto) 0.72 K/uL (0.11-0.59); Monocytes % (auto) 4.8 %; Neutrophils # (auto) 13.13 K/uL (1.4-6.5); Neutrophils % (auto) 88.1 %; Platelet Count 560 K/uL (130-400); RDW Coefficient of Variation 12.3 % (11.5-14.5); RDW Standard Deviation 41.1 fL (36.4-46.3); Red Blood Count 5.64 M/uL (4.7-6.1); White Blood Count 14.92 K/uL (4.8-10.8)
[2021-08-06 07:03] LABS: BUN Creatinine Ratio 27.9 (10-20); Calcium 9.2 mg/dl (8.5-10.1); Creatinine Clr Calc Pharmacy 75.8 ml/min; Est GFR (African American) 88.7 ml/min; Est GFR (Non-African American) 76.5 ml/min; Magnesium 2.4 mg/dl (1.8-2.4)
[2021-08-06] MEDS: dexAMETHasone 10 MG in SYRINGE 0 ML IV SCH (08:50)
[2021-08-06] MEDS: FUROSEMIDE 40 MG/4 ML VIAL IV SCH (08:50)
[2021-08-06] MEDS: cycloSPORINE (RESTASIS) OP SCH ×3 (08:51→23:17)
[2021-08-06] MEDS: ENOXAPARIN INJ 40 MG/0.4 ML SYR SQ SCH (09:27)
[2021-08-06] MEDS: cefTRIAXone SODIUM 2,000 MG in DEXTROSE 5% 50 ML IV SCH (12:01)
--- NOTE | 2021-08-06 16:29 | Hospitalist Progress Note ---
Date of Service August 06, 2021 Assessment & Plan (1) Acute hypoxemic respiratory failure: Plan: Acute respiratory failure with hypoxia COVID-19 pneumonia -CXR:Compared to the previous examination, increased interstitial and alveolar opacities are now seen bilaterally, right greater than left characteristic of a viral type pneumonitis and probable Covid 19 pneumonia. CRP 9.8 Also on azithromycin, Rocephin for possible secondary bacterial infection Check procalcitonin in the morning-0.39 Blood cultures obtained-negative blood cultures Continue dexamethasone and remdesivir LFTs remain unremarkable Pulmonary hygiene, use of spirometer and flutter valve and also maintaining proning as much as possible Consider pulmonology evaluation if needed Clinically stable and feeling a little better-we will continue current management CTA did not show any pulmonary embolism but did show extensive bilateral viral pneumonia We will give a dose of Lasix today and will continue current management Still requiring very high flow oxygen to maintain saturation-we will increase Decadron to 10 mg daily and continue Lasix 40 mg IV daily Clinically much better today and still requiring high flow nasal cannula-we will continue higher dose of Decadron and Lasix 40 mg daily IV Remains very anxious Try very small dose of Ativan during the daytime and melatonin at night for sleeping Anxiety seems to be improved SVT Patient noted to be in SVT in the afternoon with a heart rate of 190 Likely secondary to hypoxic episode Reverted to sinus normal rhythm with intravenous adenosine 6 mg and then 12 mg Electrolytes have been normal Has been getting as needed Lopressor Has been on monitor No more SVT but the patient remains tachycardic CTA did not show any pulmonary embolism but it did show extensive viral pneumonia Another attack of SVT last night and was transferred to telemetry unit Appreciate cardiology input and [id number] has to be used cautiously Heart rate remains around 100 Transaminitis Likely secondary to Covid Gallbladder ultrasound showed no acute abnormality Monitor LFTs-have been improving We will check LFT tomorrow Bronchial asthma Continue steroids as above Nebs as needed Complicating Covid infection Prediabetes HbA1c 6.2 Mood disorder stable DVT Px: Lovenox SQ Code Status Full code Admission and Anticipated Discharge Date Admission Date: July 29, 2021 Subjective 07/31/2021 The patient was seen and examined in Covid unit He has been feeling a little better and trying to be in prone position to help himself He has cough and shortness of breath at rest and worse with minimal movement Has been requiring 30 L of oxygen to maintain saturation 08/01/2021 The patient was seen and examined in Covid unit He was noted to be in SVT with a heart rate of 190s during this afternoon EKG was done and he received adenosine 6 and then 12 mg and is reverted to sinus rhythm [place] palpitation but no chest pain Has been feeling the same as of yesterday 08/02/2021 The patient was seen and examined in Covid unit He is minimally better and he still requires 40 L of oxygen at 100% FiO2 to maintain saturation Remains tachycardic and we get CTA to rule out any pulmonary embolism 08/03/2021 The patient was seen and examined in Covid unit His condition has not improved and is still requiring 40 L at 90% FiO2 to maintain saturation Has been proning as much as he can No more SVT 08/04/2021 The patient was seen and examined in Covid unit He has been very anxious and has not been sleeping at night Still requiring high flow oxygen to maintain saturation 08/05/2021 The patient was seen and examined in telemetry unit and in the Covid room He was transferred to telemetry unit with another attack of SVT The SVT was treated with intravenous adenosine and cardiology was consulted He has been feeling a little better and is still requiring high flow oxygen via nasal cannula 08/06/2021 The patient was seen and examined in telemetry unit and in the Covid room He has been feeling much better today and requiring less oxygen to maintain saturation He complains to of nasal stuffiness and he has been using nose drops to help with Review of Systems Review of Systems: All systems reviewed and are unremarkable except as noted below Respiratory: Has moderate shortness of breath at rest Physical Exam Physical Exam: Lying in bed with moderate shortness of breath at rest Constitutional: well developed, well nourished and + ill appearing Eyes: PERRL, conjunctivae normal, anicteric sclerae ENMT: external ear and nose normal, oropharynx normal Neck: trachea midline, no thyromegaly Respiratory: no respiratory distress Auscultation: + diminished lung sounds and + crackles (Bibasilar crackles) Cardiovascular: Rate/Rhythm: regular rate, regular rhythm and + tachycardic Heart Sounds: normal S1 and normal S2; no murmur Extremities: no edema Gastrointestinal (Abdomen): Inspection/Auscultation: normal bowel sounds; abdomen not distended Percussion/Palpation: abdomen soft; abdomen nontender Musculoskeletal: No acute arthritis in any joint Neurologic: Alert, awake and oriented x3. No focal sensory or motor deficit appreciated Psychiatric: A+Ox3, euthymic affect Lymphatic: no cervical or axillary lymphadenopathy Results & Data Results & Data ([facility]) Vital Signs (Past 12 Hours) Vital Signs Temp Pulse Resp BP BP Pulse Ox Pulse Ox 08/06/21 16:17 36.8 C 104 H 20 122/69 92 08/06/21 14:41 109 H 20 94 08/06/21 11:29 36.8 C 107 H 17 100/72 93 08/06/21 10:05 108 H 20 93 08/06/21 08:05 37 C 97 H 22 104/75 98 08/06/21 07:17 94 H 24 92 08/06/21 07:00 92 Laboratory Results Short CBC 08/06/21 Range/Units 05:58 WBC 14.92 H (4.8-10.8) K/uL Hgb 17.4 (14.0-18.0) g/dL Hct 51.0 (42-52) % Plt Count 560 H (130-400) K/uL BMP 08/06/21 05:58 Sodium 138 Potassium 4.0 Chloride 102 Carbon Dioxide 29 BUN 30 H Creatinine 1.09 Glucose 141 H Calcium 9.2 Medications Administered Current Inpatient Medications Acetaminophen (Acetaminophen 325 Mg Tab) 325 mg PO Q6H PRN PRN Reason: Mild Pain Stop: 08/28/21 22:44 Last Admin: 08/02/21 16:37 Dose: 325 mg Documented by: Cyclosporine (Cyclosporine (Restasis)) 1 drops OP BID [facility] Stop: 09/05/21 08:59 Last Admin: 08/06/21 12:36 Dose: 1 drops Documented by: Enoxaparin Sodium (Enoxaparin Inj 40 Mg/0.4 Ml Syr) 40 mg SQ QAM [facility] Stop: 08/29/21 08:59 Last Admin: 08/06/21 09:27 Dose: 40 mg Documented by: Fluticasone Propionate (Fluticasone Propionate Na Spr 16 Gm Btl) 2 sprays NA DAILY PRN PRN Reason: Congestion Stop: 08/28/21 22:44 Last Admin: 08/05/21 03:51 Dose: 2 sprays Documented by: Furosemide (Furosemide 40 Mg/4 Ml Vial) 40 mg IV DAILY [facility] Stop: 09/04/21 08:59 Last Admin: 08/06/21 08:50 Dose: 40 mg Documented by: Promethazine HCl 12.5 mg/ (Sodium Chloride) 50.5 mls @ 202 mls/hr IV Q6H PRN PRN Reason: Nausea And Vomiting Stop: 08/28/21 22:44 Lorazepam (Ativan) 0.25 mg in 0.5 mls @ 0.5 mls/min IV Q4H PRN PRN Reason: Anxiety Stop: 09/03/21 07:41 Last Admin: 08/05/21 19:58 Dose: 0.5 mls/min Documented by: Dexamethasone 10 mg/ Syringe 2.5 mls @ 1 mls/min IV DAILY [facility] Stop: 08/08/21 09:03 Last Admin: 08/06/21 08:50 Dose: 1 mls/min Documented by: Melatonin (Melatonin 3 Mg Tab) 3 mg PO HS PRN PRN Reason: Sleep Stop: 09/03/21 11:14 Last Admin: 08/05/21 03:51 Dose: 3 mg Documented by: Metoprolol Tartrate (Metoprolol Tartrate 1 Mg/Ml Vial) 2.5 mg IV Q6H PRN PRN Reason: Tachycardia Stop: 08/31/21 14:48 Last Admin: 08/01/21 14:52 Dose: 2.5 mg Documented by: Tramadol HCl (Tramadol Hcl 50 Mg Tablet) 25 - 50 mg PO Q4H PRN PRN Reason: Pain Stop: 08/28/21 22:44 Last Admin: 07/30/21 08:10 Dose: 50 mg Documented by:
[2021-08-07 08:05] LABS: Albumin Level 2.6 gm/dl (3.4-5.0); BUN Creatinine Ratio 31.7 (10-20); Calcium 9.4 mg/dl (8.5-10.1); Creatinine Clr Calc Pharmacy 83.3 ml/min; Est GFR (African American) 99.7 ml/min; Potassium 3.7 mmol/L (3.5-5.1)
[2021-08-07 08:08] LABS: Albumin Globulin Ratio 0.6 (0.9-2); Bilirubin,Total 0.8 mg/dl (0.2-1); Globulin 4.6 gm/dl (2.5-4.0); Total Protein 7.2 gm/dl (6.4-8.2)
[2021-08-07] MEDS: cycloSPORINE (RESTASIS) OP SCH ×2 (08:31→21:29)
[2021-08-07] MEDS: ENOXAPARIN INJ 40 MG/0.4 ML SYR SQ SCH (08:32)
[2021-08-07] MEDS: FUROSEMIDE 40 MG/4 ML VIAL IV SCH (08:32)
[2021-08-07] MEDS: dexAMETHasone 10 MG in SYRINGE 0 ML IV SCH (08:32)
--- NOTE | 2021-08-07 17:01 | Hospitalist Progress Note ---
Date of Service August 07, 2021 Assessment & Plan (1) Acute hypoxemic respiratory failure: Plan: Acute respiratory failure with hypoxia COVID-19 pneumonia -CXR:Compared to the previous examination, increased interstitial and alveolar opacities are now seen bilaterally, right greater than left characteristic of a viral type pneumonitis and probable Covid 19 pneumonia. -CRP 9.8 -Also received azithromycin, Rocephin for possible secondary bacterial infection -Blood cultures negative Completed remdesivir course Continue Dexamethasone Pulmonary hygiene Lasix PRN Currently on 50L oxygen Encourage to prone SVT Likely secondary to hypoxic episode Received Adenosine 6 mg and then 12 mg Monitor electrolytes Lopressor PRN CTA did not show any pulmonary embolism but it did show extensive viral pneumonia Appreciate cardiology Consider to start on diltiazem 30mg Q6H if re-occurs Transaminitis Likely secondary to Covid Gallbladder ultrasound showed no acute abnormality Monitor LFTs Bronchial asthma Continue steroids as above Nebs as needed Prediabetes HbA1c 6.2 Mood disorder stable DVT Px: Lovenox SQ Code Status Full code Admission and Anticipated Discharge Date Admission Date: July 29, 2021 Subjective Patient is seen and examined at bedside States having intermittent palpitations, dizziness Less cough today Denies any chest pain, dyspnea, nausea, vomiting, abdominal pain Also reports poor sleep overnight Review of Systems Review of Systems: All systems reviewed & are unremarkable except as noted in Subjective Physical Exam Physical Exam: Physical Exam: Vitals signs as noted above General Appearance:Moderately built and nourished, no apparent distress Head: normocephalic, Atraumatic Eyes: normal inspection, EOMI Neck: supple, Trachea midline Respiratory/Chest: Decreased breath sounds, CTA Cardiovascular: S1, S2, No murmur, +Tachycardia Abdomen/GI:Soft, Non tender, Bowel sounds present Extremities/Musculoskeletal:normal inspection, no edema Neurologic/Psych:AAOX3, grossly no focal neurological deficits Skin: normal color, warm Results & Data Results & Data ([facility]) Vital Signs (Past 12 Hours) Vital Signs Temp Pulse Pulse Pulse Resp BP BP 08/07/21 16:13 36.5 C 109 H 18 111/76 08/07/21 15:52 100 H 18 08/07/21 15:05 116 H 20 08/07/21 14:59 108 H 08/07/21 11:43 37.2 C 110 H 20 113/71 08/07/21 11:06 96 H 20 08/07/21 08:22 109 H 20 08/07/21 08:00 111 H 08/07/21 07:26 36.9 C 104 H 22 117/91 Pulse Ox 08/07/21 16:13 96 08/07/21 15:52 93 08/07/21 15:05 93 08/07/21 14:59 08/07/21 11:43 93 08/07/21 11:06 88 L 08/07/21 08:22 90 08/07/21 08:00 08/07/21 07:26 98 Laboratory Results [facility] 08/07/21 07:14 Sodium 133 L Potassium 3.7 Chloride 98 Carbon Dioxide 30 BUN 31 H Creatinine 0.99 Glucose 131 H Calcium 9.4 Liver Function 08/07/21 Range/Units 07:14 Total Bilirubin 0.8 (0.2-1) mg/dl AST 17 (15-37) U/L ALT 38 (12-78) Alkaline Phosphatase 70 (45-117) U/L Albumin 2.6 L (3.4-5.0) gm/dl
[2021-08-08] MEDS: MELATONIN 3 MG TAB PO PRN ×2 (00:07→23:15)
[2021-08-08 07:18] LABS: Hematocrit (blood only) 50.2 % (42-52); Mean Corpuscular Hemoglobin 30.6 pg (25-34); Mean Corpuscular Hgb Conc 33.9 g/dL (32-36); Mean Corpuscular Volume 90.3 fL (80-100); Mean Platelet Volume 10.8 fL (7.4-10.4); Platelet Count 591 K/uL (130-400); RDW Coefficient of Variation 12.5 % (11.5-14.5); RDW Standard Deviation 41.5 fL (36.4-46.3); Red Blood Count 5.56 M/uL (4.7-6.1); White Blood Count 12.94 K/uL (4.8-10.8)
[2021-08-08 07:47] LABS: BUN Creatinine Ratio 31.9 (10-20); C Reactive Protein 1.51 mg/dl (0-0.29); Calcium 9.2 mg/dl (8.5-10.1); Creatinine Clr Calc Pharmacy 77.8 ml/min; Est GFR (African American) 91.8 ml/min; Est GFR (Non-African American) 79.2 ml/min; Magnesium 2.4 mg/dl (1.8-2.4); Potassium 4.1 mmol/L (3.5-5.1)
--- NOTE | 2021-08-08 08:05 | XRay Report ---
XR chest 1V portable CLINICAL HISTORY: Covid positive. Follow-up interstitial and alveolar opacities. COMPARISON STUDY: 07/31/2021 TECHNIQUE: 1 view of the chest FINDINGS: Single frontal view of the chest demonstrates the cardiomediastinal silhouette to be within normal li mits. Compared to the previous examination, there has been interval improvement of interstitial and a lveolar opacities. There is still persistent alveolar opacity seen within the right upper lobe. There is no evidence for pleural effusion. There is no evidence for vascular congestion. There is no acute osseous pathology. IMPRESSION: Interval improvement of interstitial and alveolar opacities with persistent alveolar opac ity still seen within the right upper lobe. ACT 112: Negative or not required by law. Electronically signed by: Kristian Tijerina M.D. 08/08/2021 8:04 AM
[2021-08-08] MEDS: ENOXAPARIN INJ 40 MG/0.4 ML SYR SQ SCH (09:13)
[2021-08-08] MEDS: cycloSPORINE (RESTASIS) OP SCH ×2 (09:13→19:52)
[2021-08-08] MEDS: FUROSEMIDE INJ 20 MG/2 ML VIAL IV SCH (09:14)
[2021-08-08] MEDS: dexAMETHasone 10 MG in SYRINGE 0 ML IV SCH (09:14)
[2021-08-08] MEDS ORDERED: OXYMETAZOLINE 0.05% 30 ML BTL PRN (19:37)
--- NOTE | 2021-08-08 19:43 | Hospitalist Progress Note ---
Date of Service August 08, 2021 Assessment & Plan (1) Acute hypoxemic respiratory failure: Plan: Acute respiratory failure with hypoxia COVID-19 pneumonia -CXR:Compared to the previous examination, increased interstitial and alveolar opacities are now seen bilaterally, right greater than left characteristic of a viral type pneumonitis and probable Covid 19 pneumonia. -CRP 9.8 -Also received azithromycin, Rocephin for possible secondary bacterial infection -Blood cultures negative Completed remdesivir course Completed 10 day Dexamethasone course Pulmonary hygiene Lasix PRN Currently on 50L oxygen, 50% FiO2 this morning Encourage to prone Chest x-ray today showed interval improvement of opacities SVT Likely secondary to hypoxic episode Received Adenosine 6 mg and then 12 mg Monitor electrolytes Lopressor PRN CTA did not show any pulmonary embolism but it did show extensive viral pneumonia Appreciate cardiology Consider to start on diltiazem 30mg Q6H if re-occurs Needs follow-up with cardiology upon discharge Transaminitis Likely secondary to Covid Gallbladder ultrasound showed no acute abnormality Monitor LFTs Bronchial asthma Continue steroids as above Nebs as needed Prediabetes HbA1c 6.2 Mood disorder stable DVT Px: Lovenox SQ Code Status Full code Admission and Anticipated Discharge Date Admission Date: July 29, 2021 Subjective Patient is seen and examined at bedside States feeling much better today Sitting in chair during my encounter States having minimal epistaxis earlier today Denies any cough today Currently on 50 L, 50% FiO2 Also denies any chest pain, nausea, vomiting, abdominal pain Review of Systems Review of Systems: All systems reviewed & are unremarkable except as noted in Subjective Physical Exam Physical Exam: Physical Exam: Vitals signs as noted above General Appearance:Moderately built and nourished, no apparent distress Head: normocephalic, Atraumatic Eyes: normal inspection, EOMI Neck: supple, Trachea midline Respiratory/Chest: Decreased breath sounds, CTA Cardiovascular: S1, S2, No murmur, +Tachycardia Abdomen/GI:Soft, Non tender, Bowel sounds present Extremities/Musculoskeletal:normal inspection, no edema Neurologic/Psych:AAOX3, grossly no focal neurological deficits Skin: normal color, warm Results & Data Results & Data ([facility]) Vital Signs (Past 12 Hours) Vital Signs Temp Pulse Pulse Resp BP Pulse Ox 08/08/21 19:00 36.7 C 101 H 20 124/80 91 08/08/21 15:18 36.3 C L 109 H 20 113/79 93 08/08/21 11:12 117 H 18 92 08/08/21 11:08 36.7 C 112 H 24 107/80 92 08/08/21 10:08 98 H Laboratory Results Short CBC 08/08/21 Range/Units 07:01 WBC 12.94 H (4.8-10.8) K/uL Hgb 17.0 (14.0-18.0) g/dL Hct 50.2 (42-52) % Plt Count 591 H (130-400) K/uL BMP 08/08/21 07:01 Sodium 136 Potassium 4.1 Chloride 101 Carbon Dioxide 29 BUN 34 H Creatinine 1.06 Glucose 149 H Calcium 9.2
[2021-08-09 07:53] LABS: BUN Creatinine Ratio 34.4 (10-20); Calcium 8.4 mg/dl (8.5-10.1); Creatinine Clr Calc Pharmacy 88.9 ml/min; Est GFR (African American) 107.5 ml/min; Est GFR (Non-African American) 92.7 ml/min; Potassium 3.8 mmol/L (3.5-5.1)
[2021-08-09] MEDS: cycloSPORINE (RESTASIS) OP SCH ×2 (08:01→19:53)
[2021-08-09] MEDS: ENOXAPARIN INJ 40 MG/0.4 ML SYR SQ SCH (08:01)
[2021-08-09] MEDS: FUROSEMIDE INJ 20 MG/2 ML VIAL IV SCH (08:01)
[2021-08-09] MEDS ORDERED: predniSONE 20 MG TAB PO SCH (09:00)
--- NOTE | 2021-08-09 17:57 | Hospitalist Progress Note ---
Date of Service August 09, 2021 Assessment & Plan (1) Acute hypoxemic respiratory failure: Plan: Acute respiratory failure with hypoxia COVID-19 pneumonia -CXR:Compared to the previous examination, increased interstitial and alveolar opacities are now seen bilaterally, right greater than left characteristic of a viral type pneumonitis and probable Covid 19 pneumonia. -Repeat Chest x-ray showed interval improvement of opacities -CRP 9.8 -Also received azithromycin, Rocephin for possible secondary bacterial infection -Blood cultures negative Completed remdesivir course Completed 10 day Dexamethasone course Pulmonary hygiene Lasix PRN Encourage to prone Start on prednisone taper course Currently on 10 L supplemental oxygen Continue to wean off of oxygen as able Epistaxis Monitor CBC Hold Lovenox Oxymetazoline spray as needed SVT Likely secondary to hypoxic episode Received Adenosine 6 mg and then 12 mg Monitor electrolytes Lopressor PRN CTA did not show any pulmonary embolism but it did show extensive viral pneumonia Appreciate cardiology Consider to start on diltiazem 30mg Q6H if re-occurs Needs follow-up with cardiology upon discharge Transaminitis Likely secondary to Covid Gallbladder ultrasound showed no acute abnormality Monitor LFTs Bronchial asthma Continue steroids as above Nebs as needed Prediabetes HbA1c 6.2 Mood disorder stable DVT Px: Lovenox SQ Code Status Full code Admission and Anticipated Discharge Date Admission Date: July 29, 2021 Subjective Patient is seen and examined at bedside States having transient epistaxis Requiring less supplemental oxygen today Currently on 10 L supplemental oxygen Otherwise feels well Denies any significant cough, dyspnea Also denies any chest pain, nausea, abdominal pain Review of Systems Review of Systems: All systems reviewed & are unremarkable except as noted in Subjective Physical Exam Physical Exam: Physical Exam: Vitals signs as noted above General Appearance:Moderately built and nourished, no apparent distress Head: normocephalic, Atraumatic Eyes: normal inspection, EOMI Neck: supple, Trachea midline Respiratory/Chest: Decreased breath sounds, CTA Cardiovascular: S1, S2, No murmur, +Tachycardia Abdomen/GI:Soft, Non tender, Bowel sounds present Extremities/Musculoskeletal:normal inspection, no edema Neurologic/Psych:AAOX3, grossly no focal neurological deficits Skin: normal color, warm Results & Data Results & Data ([facility]) Vital Signs (Past 12 Hours) Vital Signs Temp Pulse Pulse Resp BP Pulse Ox 08/09/21 16:08 36.6 C 18 111/81 94 08/09/21 11:31 36.8 C 98 H 24 114/66 93 08/09/21 07:35 36.9 C 91 H 20 113/79 95 08/09/21 07:00 76 Laboratory Results [facility] 08/09/21 06:45 Sodium 135 L Potassium 3.8 Chloride 100 Carbon Dioxide 28 BUN 32 H Creatinine 0.93 Glucose 181 H Calcium 8.4 L
[2021-08-09] MEDS: MELATONIN 3 MG TAB PO PRN (22:24)
[2021-08-10 07:37] LABS: BUN Creatinine Ratio 27.9 (10-20); Calcium 8.5 mg/dl (8.5-10.1); Creatinine Clr Calc Pharmacy 90.7 ml/min; Est GFR (African American) 108.9 ml/min; Magnesium 2.1 mg/dl (1.8-2.4); Potassium 3.7 mmol/L (3.5-5.1)
[2021-08-10] MEDS: predniSONE 10 MG TABLET PO SCH (08:23)
[2021-08-10] MEDS: cycloSPORINE (RESTASIS) OP SCH ×2 (08:24→19:58)
--- NOTE | 2021-08-10 15:18 | Hospitalist Progress Note ---
Date of Service August 10, 2021 Assessment & Plan (1) Acute hypoxemic respiratory failure: Plan: Acute respiratory failure with hypoxia COVID-19 pneumonia -CXR:Compared to the previous examination, increased interstitial and alveolar opacities are now seen bilaterally, right greater than left characteristic of a viral type pneumonitis and probable Covid 19 pneumonia. -Repeat Chest x-ray showed interval improvement of opacities -CRP 9.8 -Also received azithromycin, Rocephin for possible secondary bacterial infection -Blood cultures negative Completed remdesivir course Completed 10 day Dexamethasone course Pulmonary hygiene Lasix PRN Encourage to prone Continue prednisone taper course Remains on 10 L supplemental oxygen Epistaxis Monitor CBC Hold Lovenox Oxymetazoline spray as needed Hb stable SVT Likely secondary to hypoxic episode Received Adenosine 6 mg and then 12 mg Monitor electrolytes Lopressor PRN CTA did not show any pulmonary embolism but it did show extensive viral pneumonia Appreciate cardiology Consider to start on diltiazem 30mg Q6H if re-occurs Needs follow-up with cardiology upon discharge Transaminitis Likely secondary to Covid Gallbladder ultrasound showed no acute abnormality Monitor LFTs Bronchial asthma Continue steroids as above Nebs as needed Prediabetes HbA1c 6.2 Mood disorder stable DVT Px: Lovenox SQ--Held due to Epistaxis Code Status Full code Admission and Anticipated Discharge Date Admission Date: July 29, 2021 Subjective Patient is seen and examined at bedside No significant change from yesterday Currently on 10 L supplemental oxygen No epistaxis today Still has intermittent cough with expectoration Denies any chest pain, dyspnea, dizziness, nausea, abdominal pain Reports poor sleep Review of Systems Review of Systems: All systems reviewed & are unremarkable except as noted in Subjective Physical Exam Physical Exam: Physical Exam: Vitals signs as noted above General Appearance:Moderately built and nourished, no apparent distress Head: normocephalic, Atraumatic Eyes: normal inspection, EOMI Neck: supple, Trachea midline Respiratory/Chest: Decreased breath sounds, CTA Cardiovascular: S1, S2, No murmur Abdomen/GI:Soft, Non tender, Bowel sounds present Extremities/Musculoskeletal:normal inspection, no edema Neurologic/Psych:AAOX3, grossly no focal neurological deficits Skin: normal color, warm Results & Data Results & Data ([facility]) Vital Signs (Past 12 Hours) Vital Signs Temp Pulse Pulse Resp BP Pulse Ox 08/10/21 11:44 37.1 C 92 H 18 113/68 92 08/10/21 08:00 108 H 08/10/21 07:45 37.2 C 85 18 96/60 L 96 08/10/21 03:42 37.1 C 80 31 H 101/60 90 Laboratory Results [facility] 08/10/21 04:44 Sodium 136 Potassium 3.7 Chloride 98 Carbon Dioxide 29 BUN 26 H Creatinine 0.92 Glucose 99 Calcium 8.5
[2021-08-10] MEDS: MELATONIN 3 MG TAB PO PRN (22:45)
[2021-08-11 07:35] LABS: Hematocrit (blood only) 46.4 % (42-52); Mean Corpuscular Hemoglobin 31.4 pg (25-34); Mean Corpuscular Hgb Conc 34.5 g/dL (32-36); Mean Platelet Volume 11.2 fL (7.4-10.4); Platelet Count 424 K/uL (130-400); RDW Coefficient of Variation 12.4 % (11.5-14.5); RDW Standard Deviation 41.3 fL (36.4-46.3); White Blood Count 15.72 K/uL (4.8-10.8)
[2021-08-11 08:06] LABS: BUN Creatinine Ratio 26.8 (10-20); Calcium 8.8 mg/dl (8.5-10.1); Creatinine Clr Calc Pharmacy 92.8 ml/min; Est GFR (African American) 111.8 ml/min; Est GFR (Non-African American) 96.5 ml/min; Potassium 3.9 mmol/L (3.5-5.1)
[2021-08-11] MEDS: predniSONE 10 MG TABLET PO SCH (08:42)
[2021-08-11] MEDS: cycloSPORINE (RESTASIS) OP SCH ×2 (08:43→20:45)
--- NOTE | 2021-08-11 19:09 | Hospitalist Progress Note ---
Date of Service August 11, 2021 Assessment & Plan (1) Acute hypoxemic respiratory failure: Plan: Acute respiratory failure with hypoxia COVID-19 pneumonia -CXR:Compared to the previous examination, increased interstitial and alveolar opacities are now seen bilaterally, right greater than left characteristic of a viral type pneumonitis and probable Covid 19 pneumonia. -Repeat Chest x-ray showed interval improvement of opacities -CRP 9.8 -Also received azithromycin, Rocephin for possible secondary bacterial infection -Blood cultures negative Completed remdesivir course Completed 10 day Dexamethasone course Pulmonary hygiene Lasix PRN Encourage to prone Continue prednisone taper course On 10 L supplemental oxygen Continue current management Epistaxis Monitor CBC Hold Lovenox Oxymetazoline spray as needed Hb stable Improving SVT Likely secondary to hypoxic episode Received Adenosine 6 mg and then 12 mg Monitor electrolytes Lopressor PRN CTA did not show any pulmonary embolism but it did show extensive viral pneumonia Appreciate cardiology Consider to start on diltiazem 30mg Q6H if re-occurs Needs follow-up with cardiology upon discharge Transaminitis Likely secondary to Covid Gallbladder ultrasound showed no acute abnormality Monitor LFTs Bronchial asthma Continue steroids as above Nebs as needed Prediabetes HbA1c 6.2 Mood disorder stable DVT Px: Lovenox SQ--Held due to Epistaxis Code Status Full code Admission and Anticipated Discharge Date Admission Date: July 29, 2021 Subjective Patient is seen and examined at bedside Still on 10 L supplemental oxygen Sitting in chair during my encounter States feeling well Minimal cough Denies any chest pain, dyspnea, dizziness, nausea, abdominal pain Sleep better today Review of Systems Review of Systems: All systems reviewed & are unremarkable except as noted in Subjective Physical Exam Physical Exam: Physical Exam: Vitals signs as noted above General Appearance:Moderately built and nourished, no apparent distress Head: normocephalic, Atraumatic Eyes: normal inspection, EOMI Neck: supple, Trachea midline Respiratory/Chest: Decreased breath sounds, CTA Cardiovascular: S1, S2, No murmur Abdomen/GI:Soft, Non tender, Bowel sounds present Extremities/Musculoskeletal:normal inspection, no edema Neurologic/Psych:AAOX3, grossly no focal neurological deficits Skin: normal color, warm Results & Data Results & Data ([facility]) Vital Signs (Past 12 Hours) Vital Signs Temp Pulse Pulse Resp BP Pulse Ox 08/11/21 16:50 108 H 08/11/21 15:27 36.4 C L 99 H 18 114/83 95 08/11/21 11:18 36.9 C 99 H 18 127/82 94 08/11/21 08:00 112 H 08/11/21 07:13 36.8 C 103 H 19 100/67 93 Laboratory Results Short CBC 08/11/21 Range/Units 06:31 WBC 15.72 H (4.8-10.8) K/uL Hgb 16.0 (14.0-18.0) g/dL Hct 46.4 (42-52) % Plt Count 424 H (130-400) K/uL BMP 08/11/21 06:32 Sodium 137 Potassium 3.9 Chloride 104 Carbon Dioxide 28 BUN 24 H Creatinine 0.90 Glucose 99 Calcium 8.8
[2021-08-11] MEDS: MELATONIN 3 MG TAB PO PRN (21:18)
[2021-08-12] MEDS: predniSONE 10 MG TABLET PO SCH (07:57)
[2021-08-12] MEDS: cycloSPORINE (RESTASIS) OP SCH ×2 (07:57→20:51)
[2021-08-12] MEDS: predniSONE 20 MG TAB PO SCH (08:20)
[2021-08-12 10:34] LABS: BUN Creatinine Ratio 23.2 (10-20); Calcium 9.3 mg/dl (8.5-10.1); Creatinine Clr Calc Pharmacy 84.7 ml/min; Est GFR (African American) 111.8 ml/min; Est GFR (Non-African American) 96.5 ml/min; Potassium 3.9 mmol/L (3.5-5.1)
--- NOTE | 2021-08-12 15:14 | Hospitalist Progress Note ---
Date of Service August 12, 2021 Assessment & Plan (1) Acute hypoxemic respiratory failure: Plan: Acute respiratory failure with hypoxia COVID-19 pneumonia -CXR:Compared to the previous examination, increased interstitial and alveolar opacities are now seen bilaterally, right greater than left characteristic of a viral type pneumonitis and probable Covid 19 pneumonia. -Repeat Chest x-ray showed interval improvement of opacities -CRP 9.8 -Also received azithromycin, Rocephin for possible secondary bacterial infection -Blood cultures negative Completed remdesivir course Completed 10 day Dexamethasone course Pulmonary hygiene Lasix PRN Encourage to prone Continue prednisone taper course Currently on 6 L supplemental oxygen Slowly Improving Intermittent Epistaxis Monitor CBC Oxymetazoline spray as needed Hb stable SVT Likely secondary to hypoxic episode Received Adenosine 6 mg and then 12 mg Monitor electrolytes Lopressor PRN CTA did not show any pulmonary embolism but it did show extensive viral pneumonia Appreciate cardiology Consider to start on diltiazem 30mg Q6H if re-occurs Needs follow-up with cardiology upon discharge Transaminitis Likely secondary to Covid Gallbladder ultrasound showed no acute abnormality Monitor LFTs Bronchial asthma Continue steroids as above Nebs as needed Prediabetes HbA1c 6.2 Mood disorder stable DVT Px: Heparin SQ Code Status Full code Admission and Anticipated Discharge Date Admission Date: July 29, 2021 Subjective Patient is seen and examined at bedside States feeling well today Proning during my encounter Currently on 6 L supplemental oxygen Denies any epistaxis today Mildly tachycardic on monitor No significant cough Denies any chest pain, dyspnea, dizziness, nausea, abdominal pain Review of Systems Review of Systems: All systems reviewed & are unremarkable except as noted in Subjective Physical Exam Physical Exam: Physical Exam: Vitals signs as noted above General Appearance:Moderately built and nourished, no apparent distress Head: normocephalic, Atraumatic Eyes: normal inspection, EOMI Neck: supple, Trachea midline Respiratory/Chest: Decreased breath sounds, CTA Cardiovascular: S1, S2, No murmur, +Tachycardia Abdomen/GI:Soft, Non tender, Bowel sounds present Extremities/Musculoskeletal:normal inspection, no edema Neurologic/Psych:AAOX3, grossly no focal neurological deficits Skin: normal color, warm Results & Data Results & Data ([facility]) Vital Signs (Past 12 Hours) Vital Signs Temp Pulse Pulse Resp BP Pulse Ox 08/12/21 11:18 36.6 C 109 H 18 125/89 91 08/12/21 08:00 97 H 08/12/21 07:50 36.9 C 90 18 110/71 92 08/12/21 05:07 36.9 C 80 20 115/69 94 Laboratory Results [facility] 08/12/21 08:18 Sodium 135 L Potassium 3.9 Chloride 100 Carbon Dioxide 28 BUN 21 H Creatinine 0.90 Glucose 94 Calcium 9.3
[2021-08-12] MEDS: MELATONIN 3 MG TAB PO PRN (20:51)
[2021-08-12] MEDS: HEPARIN SOD 5,000 UNIT/0.5 ML VIAL SQ SCH (20:51)
[2021-08-13 07:23] LABS: Creatinine Clr Calc Pharmacy 81.1 ml/min; Est GFR (African American) 106.1 ml/min; Est GFR (Non-African American) 91.6 ml/min
[2021-08-13] MEDS: predniSONE 20 MG TAB PO SCH (08:33)
[2021-08-13] MEDS: HEPARIN SOD 5,000 UNIT/0.5 ML VIAL SQ SCH ×2 (08:33→19:57)
[2021-08-13] MEDS: cycloSPORINE (RESTASIS) OP SCH ×2 (08:35→19:52)
[2021-08-13] MEDS ORDERED: SODIUM CHLORIDE 0.65% NA SOLN 45 ML (OCEAN) ONE (12:41)
[2021-08-13] MEDS ORDERED: SODIUM CHLORIDE 0.65% NA SOLN 45 ML (OCEAN) STA (12:48)
--- NOTE | 2021-08-13 14:06 | Hospitalist Progress Note ---
Date of Service August 13, 2021 Assessment & Plan (1) Acute hypoxemic respiratory failure: Plan: Acute respiratory failure with hypoxia COVID-19 pneumonia -CXR:Compared to the previous examination, increased interstitial and alveolar opacities are now seen bilaterally, right greater than left characteristic of a viral type pneumonitis and probable Covid 19 pneumonia. -Repeat Chest x-ray showed interval improvement of opacities -CRP 9.8 -Also received azithromycin, Rocephin for possible secondary bacterial infection -Blood cultures negative Completed remdesivir course Completed 10 day Dexamethasone course Pulmonary hygiene Lasix PRN Encourage to prone Continue prednisone taper course Currently on 3 L supplemental oxygen Needs 2 step prior to discharge Plan to discharge tomorrow if stable Intermittent Epistaxis Monitor CBC Oxymetazoline spray as needed Hb stable SVT Likely secondary to hypoxic episode Received Adenosine 6 mg and then 12 mg Monitor electrolytes Lopressor PRN CTA did not show any pulmonary embolism but it did show extensive viral pneumonia Appreciate cardiology Needs follow-up with cardiology upon discharge Started on diltiazem 30mg Q6H Can transition to long-acting diltiazem upon discharge Transaminitis Likely secondary to Covid Gallbladder ultrasound showed no acute abnormality Monitor LFTs Bronchial asthma Continue steroids as above Nebs as needed Prediabetes HbA1c 6.2 Mood disorder stable DVT Px: Heparin SQ Code Status Full code Admission and Anticipated Discharge Date Admission Date: July 29, 2021 Subjective Patient is seen and examined at bedside States feeling well today Tachycardic on monitor Patient prefers to be started on medications to control his heart rate Currently on 3 L supplemental oxygen Patient feels minimal palpitations with exertion Denies any chest pain, dyspnea, dizziness, nausea, abdominal pain Review of Systems Review of Systems: All systems reviewed & are unremarkable except as noted in Subjective Physical Exam Physical Exam: Physical Exam: Vitals signs as noted above General Appearance:Moderately built and nourished, no apparent distress Head: normocephalic, Atraumatic Eyes: normal inspection, EOMI Neck: supple, Trachea midline Respiratory/Chest: Decreased breath sounds, CTA Cardiovascular: S1, S2, No murmur, +Tachycardia Abdomen/GI:Soft, Non tender, Bowel sounds present Extremities/Musculoskeletal:normal inspection, no edema Neurologic/Psych:AAOX3, grossly no focal neurological deficits Skin: normal color, warm Results & Data Results & Data ([facility]) Vital Signs (Past 12 Hours) Vital Signs Temp Pulse Pulse Resp BP Pulse Ox 08/13/21 11:18 36.7 C 98 H 18 115/78 94 08/13/21 07:39 36.8 C 97 H 18 114/76 93 08/13/21 06:28 85 08/13/21 03:23 36.6 C 90 18 112/64 88 L Laboratory Results [facility] 08/13/21 06:23 Creatinine 0.94
[2021-08-13] MEDS: dilTIAZem HCL 30 MG TAB PO SCH ×2 (15:21→19:52)
[2021-08-13] MEDS: MELATONIN 3 MG TAB PO PRN (19:59)
[2021-08-14] MEDS: dilTIAZem HCL 30 MG TAB PO SCH ×4 (03:29→19:42)
[2021-08-14 07:08] LABS: Hematocrit (blood only) 47.7 % (42-52); Hemoglobin 15.8 g/dL (14.0-18.0); Mean Corpuscular Hemoglobin 30.8 pg (25-34); Mean Corpuscular Hgb Conc 33.1 g/dL (32-36); Platelet Count 332 K/uL (130-400); RDW Coefficient of Variation 12.9 % (11.5-14.5); RDW Standard Deviation 44.1 fL (36.4-46.3); Red Blood Count 5.13 M/uL (4.7-6.1); White Blood Count 9.16 K/uL (4.8-10.8)
[2021-08-14 07:41] LABS: Creatinine Clr Calc Pharmacy 79.4 ml/min; Est GFR (African American) 103.4 ml/min; Est GFR (Non-African American) 89.3 ml/min
[2021-08-14] MEDS: cycloSPORINE (RESTASIS) OP SCH ×2 (08:59→19:42)
[2021-08-14] MEDS: HEPARIN SOD 5,000 UNIT/0.5 ML VIAL SQ SCH ×2 (08:59→19:42)
[2021-08-14] MEDS ORDERED: ALBUTEROL HFA 8 GM INHALER INH PRN (14:20)
--- NOTE | 2021-08-14 14:54 | Hospitalist Progress Note ---
Date of Service August 14, 2021 Assessment & Plan (1) Acute hypoxemic respiratory failure: Plan: Acute respiratory failure with hypoxia COVID-19 pneumonia -CXR:Compared to the previous examination, increased interstitial and alveolar opacities are now seen bilaterally, right greater than left characteristic of a viral type pneumonitis and probable Covid 19 pneumonia. -Repeat Chest x-ray showed interval improvement of opacities -Also received azithromycin, Rocephin for possible secondary bacterial infection -Blood cultures negative Completed remdesivir course Completed 10 day Dexamethasone course Continue self proning, incentive spirometry and flutter Had prednisone taper course Patient is currently saturating 90% on 4 L. Will keep patient for another day or so to wean oxygen considering patient did not do very well with 2 step. Required upto 6l/min but reported increased SOB then. Start albuterol prn SOB/wheezing Intermittent Epistaxis Monitor CBC Oxymetazoline spray as needed Hb stable SVT Likely secondary to hypoxic episode Received Adenosine 6 mg and then 12 mg Monitor electrolytes Lopressor PRN CTA did not show any pulmonary embolism but it did show extensive viral pneumonia Appreciate cardiology's recs Needs follow-up with cardiology upon discharge Started on diltiazem 30mg Q6H Can transition to long-acting diltiazem upon discharge Transaminitis Likely secondary to Covid Gallbladder ultrasound showed no acute abnormality Resolved Bronchial asthma Nebs as needed Prediabetes HbA1c 6.2 Mood disorder stable DVT Px: Heparin SQ Code Status Full code Admission and Anticipated Discharge Date Admission Date: July 29, 2021 Subjective 56-year-old man with history of asthma, hyperlipidemia, mood disorder who presented with flulike symptoms, diarrhea anorexia. Being managed for acute hypoxic respiratory failure due to COVID-19 pneumonia Patient seen and examined. Patient reported he had an episode of increased shortness of breath earlier this morning which has currently resolved. Still has cough Denies any chest pain Denied any fevers, chills, nausea, vomiting Denies abdominal pain, diarrhea Denies any dysuria, frequency, urgency Physical Exam Constitutional: + well hydrated; no acute distress Eyes: PERRL, conjunctivae normal, anicteric sclerae ENMT: external ear and nose normal, oropharynx normal Respiratory: On 4 L/min nasal cannula, diminished breath sounds Cardiovascular: Rate/Rhythm: regular rate and regular rhythm S1-S2 Gastrointestinal (Abdomen): normal bowel sounds, soft, nontender, no hepatosplenomegaly Musculoskeletal: no cyanosis or clubbing, extremities motor strength 5/5 Neurologic: PERRL, EOMI, accommodation nl, no face palsy, no dysarthria Psychiatric: A+Ox3, euthymic affect Results & Data Results & Data ([facility]) Vital Signs (Past 12 Hours) Vital Signs Temp Pulse Pulse Pulse Pulse Pulse Pulse 08/14/21 12:17 36.5 C 87 08/14/21 11:15 98 H 110 H 110 H 113 H 08/14/21 09:39 85 08/14/21 07:17 37.0 C 90 08/14/21 03:45 36.6 C 85 Pulse Pulse Resp Resp Resp Resp Resp 08/14/21 12:17 18 08/14/21 11:15 102 H 98 H 18 24 24 24 08/14/21 09:39 08/14/21 07:17 18 08/14/21 03:45 18 Resp Resp BP Pulse Ox Pulse Ox Pulse Ox Pulse Ox 08/14/21 12:17 110/71 90 08/14/21 11:15 22 18 90 86 L 89 L 08/14/21 09:39 08/14/21 07:17 104/68 89 L 08/14/21 03:45 109/75 92 Pulse Ox Pulse Ox Pulse Ox 08/14/21 12:17 08/14/21 11:15 84 L 91 87 L 08/14/21 09:39 08/14/21 07:17 08/14/21 03:45 Laboratory Results Abnormal lab results 08/14/21 08/14/21 Range/Units 06:47 06:47 MPV 11.0 H (7.4-10.4) fL BUN 21 H (7-18) mg/dl BUN/Creatinine Ratio 22.0 H (10-20) Glucose 106 H (70-99) mg/dl
[2021-08-15] MEDS: dilTIAZem HCL 30 MG TAB PO SCH ×3 (03:30→12:24)
[2021-08-15] MEDS: HEPARIN SOD 5,000 UNIT/0.5 ML VIAL SQ SCH (08:19)
[2021-08-15] MEDS: cycloSPORINE (RESTASIS) OP SCH (08:19)
--- NOTE | 2021-08-15 11:16 | Discharge Summary ---
Date of Service August 15, 2021 Admission HPI Per Admitting Provider History obtained from patient and records. Medical history significant for bronchial asthma, hyperlipidemia, mood disorder. Patient with flulike symptoms, achiness, diarrhea symptoms without abdominal pain, poor appetite last week. Sick COVID-19 contacts at home. Patient has not received COVID-19 examination. First outpatient COVID-19 test last week was negative. 2 days later, patient insisted on being retested because of persistent symptoms. Second COVID-19 test was positive. Patient later developed cough symptoms productive of yellow sputum without chest pain. Some shortness of breath. Patient seen at the ER yesterday. Chest x-ray showed bilateral airspace opacities more pronounced on the right suggestive of pneumonia. Patient discharged home and advised self-care. Patient returned to ER with worsening symptoms. O2 sats upon arrival at the ER tonight 80s on room air. Decadron administered at the ER. Medical History as above Surgical History : Dental surgery Family History : Kidney cancer, DM, heart disease, stroke, mastocytosis Personal/Social history : Non-smoker, occasional EtOH intake, [employer] senior business analyst Admission Exam Per Admitting Provider GENERAL: Slightly uncomfortable, slightly anxious, obese, no respiratory distress SKIN: Normal color, warm HEENT: Bespectacled, partial alopecia, pink palpebral conjunctivae, no ptosis, dry buccal mucosa NECK : Supple, short neck, no tenderness CHEST : Decreased breath sounds, no tenderness HEART : RRR, no obvious murmurs ABDOMEN: Some distention, nontender EXTREMITIES : No LE swelling/tenderness, no other conspicuous deformities noted NEUROLOGIC : Coherent, no facial asymmetry, no other gross focality Principal Diagnosis Acute hypoxic respiratory failure due to COVID-19 pneumonia Supraventricular tachycardia Discharge Exam Constitutional + well hydrated; no acute distress Eyes PERRL, conjunctivae normal, anicteric sclerae ENMT external ear and nose normal, oropharynx normal Respiratory On nasal cannula, diminished breath sounds. No crackles Cardiovascular Rate/Rhythm: regular rate and regular rhythm S1 S2 Gastrointestinal (Abdomen) normal bowel sounds, soft, nontender, no hepatosplenomegaly Musculoskeletal no cyanosis or clubbing, extremities motor strength 5/5 Neurologic PERRL, EOMI, accommodation nl, no face palsy, no dysarthria Psychiatric A+Ox3, euthymic affect Discharge Data Allergies Allergy/AdvReac Type Severity Reaction Status Date / Time No Known Allergies Allergy Verified 07/29/21 19:52 Consultations 07/29/21 20:41 ED Decision to Admit Stat 08/05/21 08:00 Consult Cardiology Routine Ordered Studies 07/30/21 10:10 US gallbladder Routine 08/02/21 10:38 CT angio chest PE protocol Routine Hospital Course (1) Acute hypoxemic respiratory failure: Acute respiratory failure with hypoxia COVID-19 pneumonia -CXR:Compared to the previous examination, increased interstitial and alveolar opacities are now seen bilaterally, right greater than left characteristic of a viral type pneumonitis and probable Covid 19 pneumonia. -Repeat Chest x-ray showed interval improvement of opacities -Also received azithromycin, Rocephin for possible secondary bacterial infection -Blood cultures negative Completed remdesivir course Completed 10 day Dexamethasone course Continue self proning, incentive spirometry and flutter Had prednisone taper course Discharged on nasal oxygen at 4l/min at rest and 6l/minwith activity Albuterol prn SVT Likely secondary to hypoxic episode Received Adenosine 6 mg and then 12 mg CTA did not show any pulmonary embolism but it did show extensive viral pneumonia Was seen by medical liaison and started on diltiazem 30mg q6h Changed to 120mg diltiazem ER daily Needs follow-up with cardiology upon discharge Transaminitis Likely secondary to Covid Gallbladder ultrasound showed no acute abnormality Resolved Bronchial asthma Nebs as needed Prediabetes HbA1c 6.2 Mood disorder stable Total Time Total Time Spent Total Time Spent (In Minutes): 40 Total Time Includes: Examination of the Patient, Discharge Planning and Medication Reconciliation Discharge Plan Discharge Items Patient Disposition: Home - Self-Care Reason For Visit: RESP FAILURE, COVID Discharge Diagnosis: Acute hypoxic respiratory failure due to COVID-19 pneumonia Supraventricular tachycardia Activity: Resume your previous activity Non-emergency contact: Primary Care Provider Call non-emergency contact if: you have any medication questions and your symptoms worsen Follow-up/Referrals: Scout Figueroa MD [Primary Care Provider] - 08/21/21 11:00 am (Date & Time 08/21/2021 11:00 AM Provider Scout Figueroa MD Department [facility] ) Diet: Regular Addtl Attending Provider Instructions: Mr. Bergeron You came to the hospital complaining of flulike symptoms. You were evaluated and found to have COVID-19 pneumonia. You required oxygen. You were treated and your symptoms are improving. You are being discharged on oxygen. Please use oxygen at 4 L/min at rest and increased to 6 L with activity. Please continue incentive spirometry and flutter as we discussed at home. You also had increased heart rate [supraventricular tachycardia] you were evaluated by the medical liaison and started on new medication diltiazem. Please ensure follow-up with your primary doctor. It was a pleasure taking care of you Pending Studies at Discharge: No Stand-Alone Forms: My [facility], Smoking Cessation Medications and DC Order Prescriptions: New diltiazem HCl 120 mg capsule,extended release 24 hr 120 mg PO DAILY Qty: 30 RF: 0 Continued diphenhydramine HCl [Benadryl] 25 mg Capsule 25 - 50 mg PO DIRECTED PRN (Reason: Congestion) RF: 0 Restasis 0.05 % dropperette 1 drp OPB BID RF: 0 guaifenesin [Mucinex] 600 mg Tablet Extended Release 12hr 600 mg PO BID PRN (Reason: Congestion) RF: 0 fluticasone propionate 50 mcg/actuation spray,suspension 2 spray INTRANASAL DAILY PRN (Reason: Congestion) Qty: 16 RF: 0 Changed acetaminophen [Tylenol Extra Strength] 500 mg Tablet 1,000 mg PO Q8H PRN (Reason: FEVER/PAIN) Qty: 0 RF: 0 albuterol sulfate 90 mcg/actuation Hfa Aerosol Inhaler 1 - 2 inh INHALATION Q6H PRN (Reason: Shortness Of Breath) Qty: 8.5 RF: 0 Discontinued ibuprofen [Advil] 200 mg Tablet 200 - 400 mg PO DIRECTED PRN (Reason: FEVER/PAIN) RF: 0 Discharge Orders: Discharge Order (Routine); Ordered 08/15/21 Ordered By: Gerda Stark/Other Patient Handouts: Cardizem CD 24 HR Extended Release Oral Capsule 120 mg, Prediabetes, 5 Steps for Eating Healthier Admission Data Admit Date/Time: 07/29/21 21:19 Attending Provider: Gerda Ziegler I. Admit Provider: Eliu Fowler Primary Care Provider: Scout Figueroa Other Providers: Raul Rodriguez ; Eliu Fowler ; Hernán Terry Other Interventions: Discharge Summary Assessment (RN) Last Done: 08/15/21 11:17
== END 2021-08-15 12:33 | disposition home or self-care (01) | DRG 177 ==
LOC: ED 18:58 → EDINP 21:19 → SUATTDRO 21:19 → 2W 22:53 → 2E 08-05 05:39
DX: U07.1 COVID-19; J45.909 Unspecified asthma, uncomplicated; R73.03 Prediabetes; R73.9 Hyperglycemia, unspecified; I47.1 Supraventricular tachycardia; J96.01 Acute respiratory failure with hypoxia; Z79.899 Other long term (current) drug therapy; R04.0 Epistaxis; A49.9 Bacterial infection, unspecified; F39 Unspecified mood [affective] disorder; R74.01 Elevation of levels of liver transaminase levels; J12.82 Pneumonia due to coronavirus disease 2019